=== PATIENT | male | born 1985 | race African-American/Black ===

== ENCOUNTER 2017-07-04 16:33 | Observation (INO) ==
[2017-07-04] MEDS ORDERED: GI Cocktail 40 ML EACH PO ONE (17:08)
[2017-07-04] MEDS ORDERED: Ondansetron 4 MG/2 ML VIAL IVP ONE (17:08)
[2017-07-04] MEDS ORDERED: 0.9 % Sodium Chloride 1,000 ML IVC ONE ×2 (17:08→19:08)
[2017-07-04 17:40] LABS: Basophils % 0.3 %; Eosinophils % 0.2 %; Hemoglobin 14.8 g/dL (12.9-16.9); Immature Granulocytes % 0.3 % (0-4); Lymphocytes # 1.9 K/mcL (0.6-4.6); Lymphocytes % 18.1 %; Mean Corpuscular HGB Conc 34.4 g/dL (31.6-35.5); Mean Corpuscular Hemoglobin 30.4 pg (28.0-33.3); Mean Corpuscular Volume 88.3 fL (83.0-100.0); Mean Platelet Volume 9.8 fL (9.4-12.4); Monocytes # 0.7 K/mcL (0.0-1.3); Monocytes % 6.6 %; Neutrophils # 7.7 K/mcL (1.6-8.9); Platelet Count 382 K/mcL (140-400); Red Blood Count 4.87 M/mcL (4.19-5.50); Red Cell Distribution Width 12.4 % (11.5-14.5); Segmented Neutrophils % 74.5 %
[2017-07-04 17:55] LABS: Alanine Aminotransferase 30 Units/L (7-52); Albumin 4.6 g/dL (3.5-5.7); Albumin/Globulin Ratio 1.4 (1.1-2.2); Alkaline Phosphatase 73 Units/L (34-104); Aspartate Amino Transferase 22 Units/L (13-39); BUN/Creatinine Ratio 7 (6-26); Bilirubin,Direct 0.1 mg/dL (0.0-0.2); Bilirubin,Indirect 0.3 mg/dL (0.0-1.2); Bilirubin,Total 0.4 mg/dL (0.3-1.0); Blood Urea Nitrogen 8 mg/dL (6-20); Calcium 10.1 mg/dL (8.6-10.3); Carbon Dioxide 26 mEq/L (23-29); Chloride 102 mEq/L (98-107); Globulin 3.3 g/dL (2.4-3.5); Glucose 101 mg/dL (70-105); Lipase 92 Units/L (11-82); Osmolality,Calculated 278 (280-300); Potassium 3.7 mEq/L (3.5-5.1); Sodium 135 mEq/L (136-145); Total Protein 7.9 g/dL (6.4-8.9); eGFR For Non-African Americans > 60 (> 60)
[2017-07-04] MEDS ORDERED: *HR* FentaNYL (PF) 100 MCG/2 ML VIAL IVP ONE ×2 (18:01→21:23)
[2017-07-04 18:15] LABS: Bilirubin,Urine Negative (Negative); Blood,Urine Negative (Negative); Clarity,Urine Clear (Clear); Color,Urine Yellow (Yellow); Glucose,Urine (UA) Normal (Normal); Ketones,Urine Negative (Negative); Leukocyte Esterase,Urine Negative (Negative); Nitrite,Urine Negative (Negative); Protein,Urine Trace mg/dL (Neg-Trace); Specific Gravity,Urine 1.016 (1.010-1.025); Urobilinogen,Urine Normal (Normal)
[2017-07-04 18:17] LABS: Bacteria,Urine None Seen per hpf (None-Few); Hyaline Casts,Urine None Seen per lpf (None-Few); RBC,Urine 0-3 per hpf (0-3); Squamous Epithelial Cell,Urine None Seen per lpf (None-Few); WBC,Urine 0-3 per hpf (0-3)
[2017-07-04] MEDS ORDERED: *HR* Promethazine 25 MG/ML VIAL IVP ONE (19:08)
--- NOTE | 2017-07-04 19:12 | Emergency Department Note ---
Disposition Clinical Impression: Pancreatitis Qualifiers: Chronicity: acute Pancreatitis type: unspecified pancreatitis type Acute pancreatitis complication: unspecified Qualified Code(s): K85.90 - Acute pancreatitis without necrosis or infection, unspecified Abdominal pain Qualifiers: Abdominal location: epigastric Qualified Code(s): R10.13 - Epigastric pain Intractable vomiting Qualifiers: Vomiting type: unspecified Nausea presence: with nausea Qualified Code(s): R11.2 - Nausea with vomiting, unspecified Disposition: Admitted As Inpatient Condition: Good Reasons to Return/Additional Instructions: Please follow-up with your primary care provider for continuation of your care. Return to the emergency department if you develop any worsening of your condition or if you develop new concerning symptoms. Prescriptions: OxyCODONE/APAP 5/325 [Percocet 5/325 MG] 1 each PO Q6HR PRN 4 Days #14 tablet PRN Reason: Pain Ondansetron ODT [Zofran ODT] 4 mg SL Q8HR #10 tab.rapdis Referrals: [facility] [Outside] [facility] [Outside] Forms: ED Satisfaction Letter Time of Disposition: 19:13 General Adult HPI - General Chief complaint: ED Nausea/Vomiting/Diarrhea Stated complaint: Vomiting / Flu Time Seen by Provider: 07/04/17 16:44 Source: patient, family Mode of arrival: ambulatory Limitations: no limitations Nursing Notes Reviewed: Yes Vital Signs Reviewed: Yes - History of Present Illness HPI Narrative: 32-year-old male presents emergency Department with concerns of epigastric abdominal pain. Patient states he has had this pain intermittently over the past 3 weeks. Patient states the pain is worse today and he presents for further evaluation. He has not been evaluated for this pain within the past few weeks. Patient denies a history of similar pain in the past. Patient states pain is worse with eating. He is unable to tolerate by mouth intake at home. Patient feels lightheaded however he has not syncopized. Patient denies fever, chest pain, shortness of breath, diarrhea, hematochezia, melena. Patient denies EtOH or IV drug use. Pain Scale: 8 - Related Data Previous Rx's Medication Instructions Recorded Famotidine [Pepcid] 20 mg PO DAILY #30 tablet 06/07/17 PredniSONE [Deltasone] 60 mg PO DAILY 4 Days #12 tablet 06/07/17 Ondansetron ODT [Zofran ODT] 4 mg SL Q8HR #10 tab.rapdis 07/04/17 OxyCODONE/APAP 5/325 [Percocet 1 each PO Q6HR PRN 4 Days #14 07/04/17 5/325 MG] tablet Allergies Allergy/AdvReac Type Severity Reaction Status Date / Time No Known Allergies Allergy Verified 07/04/17 16:36 All systems ED: reviewed and negative except as stated. Review of Systems: As Per HPI Past Medical History - Past Medical History Attestation: Yes The following information was validated with the patient. Source: patient Medical history: Reports: no medical history, other Surgical history: Reports: no surgical history, other Psychiatric history: Reports: no psych history - Social History Smoking Status: Former smoker Smokeless Tobacco Status: No Alcohol use: Reports: rarely Drug use: Reports: marijuana Physical Exam General: Alert and in no acute distress Skin: Warm, dry, intact Head: Normocephalic and atraumatic Neck: Supple, trachea midline and no tenderness Cardiovascular: Tachycardia, no murmur, normal perfusion Respiratory: CTAB, no wheezing, cough, or respiratory distress Musculoskeletal: Normal strength, no tenderness, swelling or deformity GI: Soft, mild tenderness to the right lower quadrant as well as the epigastrium without evidence of rigidity, guarding, rebound. nondistended. Bowel sounds present Neuro: A&O to person, place, time and situation. No focal deficits noted on exam Psychiatric: cooperative and appropriate mood and affect. - General Limitations: no limitations General appearance: alert, in no apparent distress Course Vital Signs Temperature 98.8 F 07/04/17 16:36 Pulse Rate 112 07/04/17 16:36 Respiratory Rate 20 07/04/17 16:36 Blood Pressure 159/102 07/04/17 16:36 O2 Sat by Pulse Oximetry 95 07/04/17 16:36 Temperature 98.8 F 07/04/17 16:36 Pulse Rate 112 07/04/17 16:36 Respiratory Rate 20 07/04/17 16:36 Blood Pressure 159/102 07/04/17 16:36 O2 Sat by Pulse Oximetry 95 07/04/17 16:36 Oxygen Delivery Oxygen Delivery Room Air Medical Decision Making - MDM Narrative Medical decision making narrative: Patient unable to tolerate by mouth intake in the emergency department. He received multiple doses of antiemetics as well as pain medication. Patient will be admitted to the hospital for abdominal pain with intractable nausea and vomiting for possible acute pancreatitis. - Medical Records Medical records reviewed: Yes I reviewed the patient's medical records. - Lab Data Lab results reviewed: Yes I reviewed the patient's lab results. Result diagrams: 07/04/17 17:29 07/04/17 17:29 Lab Results 07/04/17 07/04/17 07/04/17 Range/Units 17:29 17:29 17:29 WBC 10.3 (4.3-11.1) K/mcL RBC 4.87 (4.19-5.50) M/mcL Hgb 14.8 (12.9-16.9) g/dL Hct 43.0 (37.5-50.1) % MCV 88.3 (83.0-100.0) fL MCH 30.4 (28.0-33.3) pg MCHC 34.4 (31.6-35.5) g/dL RDW 12.4 (11.5-14.5) % Plt Count 382 (140-400) K/mcL MPV 9.8 (9.4-12.4) fL Immature Gran % 0.3 (0-4) % Seg Neutrophils % 74.5 % Lymphocytes % 18.1 % Monocytes % 6.6 % Eosinophils % 0.2 % Basophils % 0.3 % Neutrophils # 7.7 (1.6-8.9) K/mcL Lymphocytes # 1.9 (0.6-4.6) K/mcL Monocytes # 0.7 (0.0-1.3) K/mcL Eosinophils # 0.0 (0.0-0.6) K/mcL Basophils # 0.0 (0.0-0.2) K/mcL Sodium 135 L (136-145) mEq/L Potassium 3.7 (3.5-5.1) mEq/L Chloride 102 (98-107) mEq/L Carbon Dioxide 26 (23-29) mEq/L BUN 8 (6-20) mg/dL Creatinine 1.20 (0.70-1.30) mg/dL Est GFR ( Amer) > 60 (> 60) Est GFR (Non-Af Amer) > 60 (> 60) BUN/Creatinine Ratio 7 (6-26) Glucose 101 (70-105) mg/dL Calculated Osmolality 278 L (280-300) Lactic Acid 1.9 (0.5-2.2) mmol/L Calcium 10.1 (8.6-10.3) mg/dL Total Bilirubin 0.4 (0.3-1.0) mg/dL Direct Bilirubin 0.1 (0.0-0.2) mg/dL Indirect Bilirubin 0.3 (0.0-1.2) mg/dL AST 22 (13-39) Units/L ALT 30 (7-52) Units/L Alkaline Phosphatase 73 (34-104) Units/L Troponin I (< 0.04) ng/mL Serum Total Protein 7.9 (6.4-8.9) g/dL Albumin 4.6 (3.5-5.7) g/dL Globulin 3.3 (2.4-3.5) g/dL Albumin/Globulin Ratio 1.4 (1.1-2.2) Lipase 92 H (11-82) Units/L Urine Color (Yellow) Urine Clarity (Clear) Urine pH (5.0-8.0) pH Units Ur Specific [place] (1.010-1.025) Urine Protein (Neg-Trace) mg/dL Urine Glucose (UA) (Normal) mg/dL Urine Ketones (Negative) mg/dL Urine Blood (Negative) Urine Nitrite (Negative) Urine Bilirubin (Negative) Urine Urobilinogen (Normal) mg/dL Ur Leukocyte Esterase (Negative) Urine Microscopic RBC (0-3) per hpf Urine Microscopic WBC (0-3) per hpf Ur Squamous Epith Cells (None-Few) per lpf Urine Bacteria (None-Few) per hpf Hyaline Casts (None-Few) per lpf Ur Culture Indicated? (NO) 07/04/17 07/04/17 Range/Units 17:29 18:04 WBC (4.3-11.1) K/mcL RBC (4.19-5.50) M/mcL Hgb (12.9-16.9) g/dL Hct (37.5-50.1) % MCV (83.0-100.0) fL MCH (28.0-33.3) pg MCHC (31.6-35.5) g/dL RDW (11.5-14.5) % Plt Count (140-400) K/mcL MPV (9.4-12.4) fL Immature Gran % (0-4) % Seg Neutrophils % % Lymphocytes % % Monocytes % % Eosinophils % % Basophils % % Neutrophils # (1.6-8.9) K/mcL Lymphocytes # (0.6-4.6) K/mcL Monocytes # (0.0-1.3) K/mcL Eosinophils # (0.0-0.6) K/mcL Basophils # (0.0-0.2) K/mcL Sodium (136-145) mEq/L Potassium (3.5-5.1) mEq/L Chloride (98-107) mEq/L Carbon Dioxide (23-29) mEq/L BUN (6-20) mg/dL Creatinine (0.70-1.30) mg/dL Est GFR ( Amer) (> 60) Est GFR (Non-Af Amer) (> 60) BUN/Creatinine Ratio (6-26) Glucose (70-105) mg/dL Calculated Osmolality (280-300) Lactic Acid (0.5-2.2) mmol/L Calcium (8.6-10.3) mg/dL Total Bilirubin (0.3-1.0) mg/dL Direct Bilirubin (0.0-0.2) mg/dL Indirect Bilirubin (0.0-1.2) mg/dL AST (13-39) Units/L ALT (7-52) Units/L Alkaline Phosphatase (34-104) Units/L Troponin I < 0.03 (< 0.04) ng/mL Serum Total Protein (6.4-8.9) g/dL Albumin (3.5-5.7) g/dL Globulin (2.4-3.5) g/dL Albumin/Globulin Ratio (1.1-2.2) Lipase (11-82) Units/L Urine Color Yellow (Yellow) Urine Clarity Clear (Clear) Urine pH 8.0 (5.0-8.0) pH Units Ur Specific [place] 1.016 (1.010-1.025) Urine Protein Trace (Neg-Trace) mg/dL Urine Glucose (UA) Normal (Normal) mg/dL Urine Ketones Negative (Negative) mg/dL Urine Blood Negative (Negative) Urine Nitrite Negative (Negative) Urine Bilirubin Negative (Negative) Urine Urobilinogen Normal (Normal) mg/dL Ur Leukocyte Esterase Negative (Negative) Urine Microscopic RBC 0-3 (0-3) per hpf Urine Microscopic WBC 0-3 (0-3) per hpf Ur Squamous Epith Cells None Seen (None-Few) per lpf Urine Bacteria None Seen (None-Few) per hpf Hyaline Casts None Seen (None-Few) per lpf Ur Culture Indicated? NO (NO) - Radiology Data Radiology results reviewed: Yes I reviewed the patient's radiology results. - EKG Data EKG #1 EKG attestation: Yes I reviewed and interpreted this EKG. EKG results narrative: ECG - interpreted by ED physician. Rate 82, normal sinus rhythm, no STEMI, MT, QT intervals, and QRS within normal limits
[2017-07-04] MEDS ORDERED: 0.9 % Sodium Chloride 1,000 ML IVC SCH (21:30)
[2017-07-05] MEDS ORDERED: Acetaminophen 325 MG TABLET PO PRN (01:40)
[2017-07-05] MEDS ORDERED: Naloxone 0.4 MG/ML INJ IVP PRN (01:40)
[2017-07-05] MEDS: 0.9 % Sodium Chloride w KCl 20 MEQ/1,000 ML MLS IVC SCH (02:29)
[2017-07-05] MEDS: Pantoprazole 40 MG VIAL IVP SCH ×2 (02:29→18:25)
[2017-07-05] MEDS: *HR* FentaNYL (PF) 100 MCG/2 ML VIAL IVP PRN ×2 (02:32→08:39)
--- NOTE | 2017-07-05 03:35 | Internal Med History&Physical ---
Date of Encounter: 07/04/17 Time of Encounter: 20:50 Assessment and Plan (1) Abdominal pain Current visit: Yes Status: Acute 1. I suspect this is due to biliary colic. 2. Will keep npo, on IVF, pain control, and nausea control. 3. Will order GB ultrasound. 4. Patient may need HIDA scan and surgery consult if GB Ultrasound is negative. 5. Patient may also need EGD. 6. IV Protonix BID. Qualifiers: Abdominal location: right upper quadrant Qualified Code(s): R10.11 - Right upper quadrant pain (2) Pancreatitis Current visit: Yes Status: Acute 1. Etiology unclear but highly suspicious for gallstones despite negative CT. 2. RUQ U/S as above. 3. May need MRCP if above work-up negative. Qualifiers: Chronicity: acute Pancreatitis type: biliary Acute pancreatitis complication: no infection or necrosis Qualified Code(s): K85.10 - Biliary acute pancreatitis without necrosis or infection (3) Dehydration Current visit: Yes Status: Acute 1. IVF hydration. 2. Oral fluids when pancreatitis resolves and abdominal pain improves. (4) DVT prophylaxis Current visit: Yes Status: Acute 1. Heparin SQ. Internal Medicine - H&P: HPI Chief complaint: abdominal pain and protracted N/V Admitted From: Emergency Dept Plans for Post Hospital Care: Home History of present illness: Mr. Soriano is a 32 year old male who presents with a one-month history of abdominal pain, nausea, and vomiting. He thought he had "the flu" and so he did not seek treatment, thinking this would pass with time. However, he has been unable to eat much food or fluids over the last month. He has had protracted nausea and vomiting for the last month. He has had no fevers. He has had some diarrhea, however. He has had no cough, chills, or body aches. Over the last 24-48 hours, he developed severe epigastric and right upper quadrant abdominal pain with severe nausea and vomiting. Until the last 2 days , he has been able to sustain hydration and mild to moderate oral intake despite symptoms. However, over last 1-2 days, his been unable to keep any food or fluid down without protracted nausea and vomiting and intense abdominal pain. He therefore came to the ER for evaluation. Routine labs were unremarkable. Chest x-ray and CT scan of abdomen were also unremarkable as well. He failed an oral fluid challenge and continued to vomit and have nausea with intense pain. He was therefore admitted to the hospitalist service for further workup and care. Upon my assessment of the patient, he appears ill but nontoxic. He is complaining of intense epigastric and right upper quadrant abdominal pain. He denies any hematemesis, melena, or hematochezia. He takes no chronic medications and denies any NSAID use or abuse. He does not drink alcohol but roughly once a year on his birthday. He denies any specific food intolerance, but he states that any and all foods have bothered him over the last month. He develops intense abdominal pain, nausea and, oftentimes, vomiting with occasional diarrhea after any food ingestion. Family history reveals both parents and siblings with gallbladder problems. Past Med Surg Social Fam HX - Past Medical History Attestation: Yes The following information was validated with the patient. Source: patient, old records reviewed Medical history: no medical history Psychiatric history: no psych history - Past Surgical History Surgical History: no surgical history, other - Social History Smoking Status: Former smoker Smokeless Tobacco Status: No Alcohol use: rarely Drug use: none Occupational status: employed Current living situation: Home, With Family Activity Level: Independent ambulation Recent Out of Country Travel Within the Last 8 Weeks: No - Family History Mother Living Status: Still Living Hx Family GI Disorders: Yes (GB) Father Living Status: Still Living Hx Family GI Disorders: Yes (GB) Internal Medicine - H&P: Meds 3 Allergy/AdvReac Type Severity Reaction Status Date / Time No Known Allergies Allergy Verified 07/04/17 16:36 - Constitutional Constitutional: no chills, no fever(s), no night sweats - EENT Eyes: no blurry vision, no change in vision Ears: no ear pain, no tinnitus Nose, mouth and throat: no nasal congestion, no sinus pressure, no sore throat - Cardiovascular Cardiovascular ROS IM: no chest pain, no dyspnea, no dyspnea on exertion - Respiratory Respiratory: no cough, no hemoptysis, no chest congestion, no excessive phlegm production, no change in phlegm color - Gastrointestinal Gastrointestinal: abdominal pain, diarrhea, nausea, vomiting, no hematemesis, no hematochezia, no melena - Genitourinary Genitourinary ROS male: no dysuria, no flank pain, no hematuria - Musculoskeletal Musculoskeletal ROS IM: no arthralgias, no back pain, no muscle cramps, no myalgias - Integumentary Integumentary IM: no rash, no jaundice - Neurological Neurological ROS: no dizziness, no focal weakness, no frequent falls, no headache(s) - Psychiatric Psychiatric: no anxiety, no depression - Endocrine Endocrine IM: no polydipsia, no polyuria - Hematologic/Lymphatic Hematologic/Lymphatic: no easy bruising, no lymphadenopathy - Allergic/Immunologic Allergic/Immunologic: GI upset with certain foods (with all foods), no wheezing - Constitutional Vitals: Temp Pulse Resp BP Pulse Ox 98.9 F 82 15 162/98 98 07/04/17 23:07 07/04/17 23:07 07/04/17 23:07 07/04/17 23:07 07/04/17 23:07 General appearance: Present: cooperative, mild distress (due to epigastric pain) , A&O X 3, pleasant - Head Head exam: Present: atraumatic, normal inspection - Eye Eye exam: Present: EOMI, normal appearance, PERRL. Absent: scleral icterus Pupils: Present: normal accommodation - ENT ENT exam: Present: mucous membranes dry, normal exam, normal oropharynx - Neck Neck exam general surgery: Present: full ROM, supple. Absent: tenderness, nuchal rigidity - Respiratory Respiratory exam: Present: CTAB. Absent: rales, rhonchi, wheezes - Cardiovascular Cardiovascular exam: Present: RRR, +S1, +S2. Absent: diastolic murmur, systolic murmur - GI/Abdominal GI/Abdominal exam: Present: guarding, hypoactive bowel sounds, soft, tenderness (epigastrium), no peritoneal signs. Absent: hepatomegaly, rebound, splenomegaly - Extremities Exam Extremities exam: Present: full ROM, normal capillary refill, warm, radial pulses palpable and symmetrical. Absent: calf tenderness, joint swelling, pedal edema - Back Exam Back exam: Present: normal inspection. Absent: CVA tenderness (L), CVA tenderness (R) - Neurological Exam Neurological exam: Present: alert, CN II-XII intact, oriented X3, no focal deficits, strengths equal and symetr throughout - Psychiatric Psychiatric exam: Present: normal affect, normal mood - Skin Skin exam: Present: dry, warm. Absent: rash Internal Med - H&P Results - Labs CBC & Chem 7: 07/04/17 17:29 07/04/17 17:29 - Diagnostic Studies Chest x-ray Status: image reviewed by me (negative) CT scan - abdomen Status: image reviewed by me (negative)
[2017-07-05] MEDS: *HR* Heparin 5,000 UNIT/ML VIAL SQ SCH ×2 (05:27→18:25)
[2017-07-05 05:31] LABS: Activated Partial Thrombo Time 30.6 Seconds (26.0-36.0); INR 1.1; Prothrombin Time 12.4 Seconds (9.4-12.1)
[2017-07-05 05:39] LABS: Basophils % 0.5 %; Eosinophils % 0.5 %; Hemoglobin 13.7 g/dL (12.9-16.9); Immature Granulocytes % 0.3 % (0-4); Lymphocytes # 2.3 K/mcL (0.6-4.6); Lymphocytes % 29.4 %; Mean Corpuscular HGB Conc 33.4 g/dL (31.6-35.5); Mean Corpuscular Volume 89.7 fL (83.0-100.0); Monocytes # 0.7 K/mcL (0.0-1.3); Monocytes % 8.7 %; Neutrophils # 4.7 K/mcL (1.6-8.9); Platelet Count 352 K/mcL (140-400); Red Blood Count 4.57 M/mcL (4.19-5.50); Red Cell Distribution Width 12.6 % (11.5-14.5); Segmented Neutrophils % 60.6 %
[2017-07-05 05:45] LABS: Alanine Aminotransferase 31 Units/L (7-52); Albumin 4.1 g/dL (3.5-5.7); Albumin/Globulin Ratio 1.5 (1.1-2.2); Alkaline Phosphatase 64 Units/L (34-104); Amylase 130 Units/L (29-103); Aspartate Amino Transferase 23 Units/L (13-39); BUN/Creatinine Ratio 5 (6-26); Bilirubin,Total 0.5 mg/dL (0.3-1.0); Blood Urea Nitrogen 6 mg/dL (6-20); Calcium 9.3 mg/dL (8.6-10.3); Carbon Dioxide 27 mEq/L (23-29); Chloride 105 mEq/L (98-107); Chol/HDL Ratio 3.5 (0-4.9); Cholesterol 159 mg/dL (< 200); Globulin 2.8 g/dL (2.4-3.5); Glucose 91 mg/dL (70-105); HDL Cholesterol 45 mg/dL (40-59); LDL Cholesterol,Calculated 99 mg/dL (0-99); Lipase 93 Units/L (11-82); Osmolality,Calculated 287 (280-300); Potassium 3.6 mEq/L (3.5-5.1); Sodium 140 mEq/L (136-145); Total Protein 6.9 g/dL (6.4-8.9); Triglycerides 73 mg/dL (< 150); eGFR For Non-African Americans > 60 (> 60)
[2017-07-05] MEDS: Ondansetron 4 MG/2 ML VIAL IVP PRN ×2 (08:39→15:19)
--- NOTE | 2017-07-05 10:49 | General Surgery Consult Note ---
<Ruby Velazco - Last Filed: 07/05/17 15:04> Date of Encounter: 07/05/17 Time of Encounter: 10:47 Assessment and Plan (1) Abdominal pain Current Visit: Yes Status: Acute CT abdomen and pelvis on 07/04/2017 demonstrates no evidence of acute intra- abdominal inflammatory process or fluid collection. Right upper quadrant ultrasound on 07/05/2017 was negative. Patient with symptoms consistent with biliary colic versus biliary dyskinesia. -Patient to undergo HIDA nuclear medicine scan tomorrow, likely operating room tomorrow evening. -NPO, can take PO medications including carafate. -Continue IV fluids, pain control, and anti-emetics. Qualifiers: Abdominal location: right upper quadrant Qualified Code(s): R10.11 - Right upper quadrant pain (2) Pancreatitis Current Visit: Yes Status: Acute Unclear etiology as negative CT and right upper quadrant ultrasound. -May need MRCP. -HIDA scan tomorrow. -Management as per above. Qualifiers: Chronicity: acute Pancreatitis type: biliary Acute pancreatitis complication: no infection or necrosis Qualified Code(s): K85.10 - Biliary acute pancreatitis without necrosis or infection (3) DVT prophylaxis Current Visit: Yes Status: Acute Heparin subcutaneous. History of Present Illness Consult date: 07/05/17 Reason for consult: abdominal pain (RUQ pain) Requesting physician: Alie Ignacio History of present illness: Mr. Soriano is a 32-year-old male who presents to [facility] on 07/04/2017 with a 6 week history of intermittently worsening right upper quadrant abdominal pain, nausea, and vomiting. Patient reports sporadic fevers. He also reports mild diarrhea. He denies constipation, dysuria, or hematuria. He denies cough, chills, or night sweats. He does report a 33 pound weight loss over the past 6 weeks. Patient states he did not present to the hospital sooner as he thought he had the flu and was waiting to feel better on his own. He describes his abdominal pain as achy and sharp. He states his symptoms are exacerbated by high fat meals. He does report several episodes of emesis which he reports as being green in color. Patient states he has had minimal oral intake of fluids. Upon arrival to [facility], he described increased right upper quadrant pain which he described as severe. He also described intractable nausea and vomiting. CT of the abdomen and pelvis obtained demonstrated no acute process. Patient was admitted to the hospitalist for further workup after failing an oral fluid challenge. Since admission, patient has had a right upper quadrant abdominal ultrasound which was negative. This morning, patient is resting comfortably. He states his pain is well controlled. He denies nausea or vomiting. His family is at bedside and report and positive family history in multiple members of the family for gallbladder disease. Past Med Surg Social Fam HX - Past Medical History Attestation: Yes The following information was validated with the patient. Source: patient Medical history: no medical history Psychiatric history: no psych history - Past Surgical History Surgical History: no surgical history, other - Social History Smoking Status: Former smoker Smokeless Tobacco Status: No Alcohol use: rarely Drug use: none - Family History Mother Living Status: Still Living Hx Family GI Disorders: Yes (GB) Father Living Status: Still Living Hx Family GI Disorders: Yes (GB) Medications and Allergies Ranitidine HCl [Acid Restaurant Line Server] 150 mg PO BID 07/05/17 [History] 3 Allergy/AdvReac Type Severity Reaction Status Date / Time No Known Allergies Allergy Verified 07/05/17 08:04 Review of Systems All systems PM: The remainder of the systems were reviewed and are negative - Constitutional as per HPI, fever(s), weight loss - Cardiovascular no chest pain, no chest pain at rest, no chest pain with activity, no dyspnea, no lightheadedness, no orthopnea, no pedal edema, no rapid heart rate - Respiratory no cough, no dyspnea - Gastrointestinal as per HPI, abdominal pain, diarrhea, nausea, no coffee ground emesis, no constipation, no melena - Genitourinary no flank pain, no urinary frequency, no urinary hesitancy - Endocrine no cold intolerance, no excessive sweating, no polyphagia General Surgery Exam Initial Vital Signs Temp Pulse Resp BP Pulse Ox 98.8 F 112 20 159/102 95 07/04/17 16:36 07/04/17 16:36 07/04/17 16:36 07/04/17 16:36 07/04/17 16:36 - General physical appearance well developed, well nourished - Cardiovascular Cardiovascular exam: Present: NR, tachycardia, no murmurs/rubs/gallops - Abdomen Abdomen general surgery: Present: bowel sounds present, soft, tender. Absent: guarding, rebound, rigid Abdominal Tenderness: Present: RUQ Hernia: Present: none - Neurologic Present: normal coordination - Psychiatric Psychiatric general surgery: Present: A&Ox3, speech is normal, memory intact Exam Initial Vital Signs Temp Pulse Resp BP Pulse Ox 98.8 F 112 20 159/102 95 07/04/17 16:36 07/04/17 16:36 07/04/17 16:36 07/04/17 16:36 07/04/17 16:36 Results - Labs 07/05/17 04:02 07/05/17 04:02 Abnormal lab results PT 12.4 Seconds (9.4-12.1) H 07/05/17 04:02 BUN/Creatinine Ratio 5 (6-26) L 07/05/17 04:02 Amylase 130 Units/L (29-103) H 07/05/17 04:02 Lipase 93 Units/L (11-82) H 07/05/17 04:02 Diabetes panel 07/05/17 Range/Units 04:02 Sodium 140 (136-145) mEq/L Potassium 3.6 (3.5-5.1) mEq/L Chloride 105 (98-107) mEq/L Carbon Dioxide 27 (23-29) mEq/L BUN 6 (6-20) mg/dL Creatinine 1.11 (0.70-1.30) mg/dL Glucose 91 (70-105) mg/dL Calcium 9.3 (8.6-10.3) mg/dL AST 23 (13-39) Units/L ALT 31 (7-52) Units/L Alkaline Phosphatase 64 (34-104) Units/L Albumin 4.1 (3.5-5.7) g/dL Triglycerides 73 (< 150) mg/dL HDL Cholesterol 45 (40-59) mg/dL Calcium panel 07/05/17 Range/Units 04:02 Calcium 9.3 (8.6-10.3) mg/dL Albumin 4.1 (3.5-5.7) g/dL Pituitary panel 07/05/17 Range/Units 04:02 Sodium 140 (136-145) mEq/L Potassium 3.6 (3.5-5.1) mEq/L Chloride 105 (98-107) mEq/L Carbon Dioxide 27 (23-29) mEq/L BUN 6 (6-20) mg/dL Creatinine 1.11 (0.70-1.30) mg/dL Glucose 91 (70-105) mg/dL Calcium 9.3 (8.6-10.3) mg/dL Adrenal panel 07/05/17 Range/Units 04:02 Sodium 140 (136-145) mEq/L Potassium 3.6 (3.5-5.1) mEq/L Chloride 105 (98-107) mEq/L Carbon Dioxide 27 (23-29) mEq/L BUN 6 (6-20) mg/dL Creatinine 1.11 (0.70-1.30) mg/dL Glucose 91 (70-105) mg/dL Calcium 9.3 (8.6-10.3) mg/dL Total Bilirubin 0.5 (0.3-1.0) mg/dL AST 23 (13-39) Units/L ALT 31 (7-52) Units/L Alkaline Phosphatase 64 (34-104) Units/L Albumin 4.1 (3.5-5.7) g/dL All other labs normal. Consult Discharge Plan - Plan Referrals: NONE,PCP [Primary Care Provider] - <Estrellita Santiago - Last Filed: 07/05/17 15:14> Date of Encounter: 07/05/17 Assessment and Plan (1) Nausea & vomiting Current Visit: Yes Status: Chronic continue prn antiemetics Qualifiers: Vomiting type: unspecified (2) Abdominal pain Current Visit: Yes Status: Acute awaiting hida tomorrow discussed with patient his symptoms sound gallbladder related npo prn antiemetics prn pain control gi/dvt prophylaxis Qualifiers: Abdominal location: right upper quadrant Qualified Code(s): R10.11 - Right upper quadrant pain (3) GERD (gastroesophageal reflux disease) Current Visit: Yes Status: Chronic PPI and carafate Qualifiers: Esophagitis presence: esophagitis presence not specified Qualified Code(s) : K21.9 - Gastro-esophageal reflux disease without esophagitis History of Present Illness History of present illness: patient reports feelings of RUQ pain, sharp and crampy pain after meals. This has been occurring for the last ~ 6 weeks. He has nausea and emesis after eating meals as well. He has had looser stools but denies diarrhea. No particular types of foods cause symptoms but all types of food, even liquid. He states he has lost about 30 lbs over the last 6 weeks. No fevers, chills or night sweats. Denies radiation of pain into right shoulder or back. CT showed normal gallbladder as did US of gallbladder. Ordered hida but patient ate peppermints Past Med Surg Social Fam HX - Past Medical History Medical history: GERD, other (obesity, hx drug use) - Social History Drug use: cocaine, opiates, marijuana Review of Systems All systems PM: reviewed and no additional remarkable complaints except as stated All systems PM: The remainder of the systems were reviewed and are negative General Surgery Exam Initial Vital Signs Temp Pulse Resp BP Pulse Ox 98.8 F 112 20 159/102 95 07/04/17 16:36 07/04/17 16:36 07/04/17 16:36 07/04/17 16:36 07/04/17 16:36 - General physical appearance well developed, well nourished, moderate pain, obese - Eyes PERRL, normal ocular movement - ENT normal mucosa, normocephalic - Neck trachea midline - Respiratory normal expansion, normal respiratory effort - Cardiovascular Cardiovascular exam: Present: RRR - Abdomen Abdomen general surgery: Present: bowel sounds present, soft, tender. Absent: guarding, rebound Abdominal Tenderness: Present: RUQ - Integumentary Integumentary general surgery: Present: warm and dry, no abnormal pigmentation - Neurologic Present: CN 2-12 grossly intact - Musculoskeletal Present: normal gait, normal posture - Psychiatric Psychiatric general surgery: Present: A&Ox3, speech is normal, memory intact Exam Initial Vital Signs Temp Pulse Resp BP Pulse Ox 98.8 F 112 20 159/102 95 07/04/17 16:36 07/04/17 16:36 07/04/17 16:36 07/04/17 16:36 07/04/17 16:36 Results - Labs 07/05/17 04:02 07/05/17 04:02 Abnormal lab results PT 12.4 Seconds (9.4-12.1) H 07/05/17 04:02 BUN/Creatinine Ratio 5 (6-26) L 07/05/17 04:02 Amylase 130 Units/L (29-103) H 07/05/17 04:02 Lipase 93 Units/L (11-82) H 07/05/17 04:02 Diabetes panel 07/05/17 Range/Units 04:02 Sodium 140 (136-145) mEq/L Potassium 3.6 (3.5-5.1) mEq/L Chloride 105 (98-107) mEq/L Carbon Dioxide 27 (23-29) mEq/L BUN 6 (6-20) mg/dL Creatinine 1.11 (0.70-1.30) mg/dL Glucose 91 (70-105) mg/dL Calcium 9.3 (8.6-10.3) mg/dL AST 23 (13-39) Units/L ALT 31 (7-52) Units/L Alkaline Phosphatase 64 (34-104) Units/L Albumin 4.1 (3.5-5.7) g/dL Triglycerides 73 (< 150) mg/dL HDL Cholesterol 45 (40-59) mg/dL Calcium panel 07/05/17 Range/Units 04:02 Calcium 9.3 (8.6-10.3) mg/dL Albumin 4.1 (3.5-5.7) g/dL Pituitary panel 07/05/17 Range/Units 04:02 Sodium 140 (136-145) mEq/L Potassium 3.6 (3.5-5.1) mEq/L Chloride 105 (98-107) mEq/L Carbon Dioxide 27 (23-29) mEq/L BUN 6 (6-20) mg/dL Creatinine 1.11 (0.70-1.30) mg/dL Glucose 91 (70-105) mg/dL Calcium 9.3 (8.6-10.3) mg/dL Adrenal panel 07/05/17 Range/Units 04:02 Sodium 140 (136-145) mEq/L Potassium 3.6 (3.5-5.1) mEq/L Chloride 105 (98-107) mEq/L Carbon Dioxide 27 (23-29) mEq/L BUN 6 (6-20) mg/dL Creatinine 1.11 (0.70-1.30) mg/dL Glucose 91 (70-105) mg/dL Calcium 9.3 (8.6-10.3) mg/dL Total Bilirubin 0.5 (0.3-1.0) mg/dL AST 23 (13-39) Units/L ALT 31 (7-52) Units/L Alkaline Phosphatase 64 (34-104) Units/L Albumin 4.1 (3.5-5.7) g/dL All other labs normal. - Imaging CT scan - abdomen: report reviewed CT scan - pelvis: report reviewed US - abdomen: report reviewed - Attending Attestation I examined this patient and my medical decision-making was reviewed with the Resident Physician. I agree with the documented findings, disposition and treatment plan as described except to the extent set forth below.
[2017-07-05] MEDS ORDERED: *HR* OxyCODONE Immed Rel 5 MG TABLET PO PRN (13:05)
[2017-07-05] MEDS ORDERED: *HR* Promethazine 25 MG/ML VIAL IVP PRN (15:15)
--- NOTE | 2017-07-05 15:34 | Internal Med Progress Note ---
Date of Encounter: 07/05/17 Time of Encounter: 09:25 - Assessment and plan (1) Abdominal pain Current Visit: Yes Status: Acute Assessment and plan: Likely biliary colic. CT abdomen showed no evidence of acute intra-abdominal inflammatory process. Right upper quadrant ultrasound showed no evidence of gallstones or thickened gallbladder wall. Liver enzymes and bilirubin noted to be normal. Serum lipase is minimally elevated at 93. Patient's history is consistent with biliary disease. Surgery consulted, recommended HIDA scan, which is pending. Continue bowel rest, IV hydration, supportive care with when necessary antiemetics and pain control with when necessary IV fentanyl and oral Percocet. PPI. Qualifiers: Abdominal location: right upper quadrant Qualified Code(s): R10.11 - Right upper quadrant pain (2) Pancreatitis Current Visit: Yes Status: Acute Assessment and plan: Very mild. Likely due to biliary etiology. Plan as above. May consider MRCP if HIDA scan is negative. Qualifiers: Chronicity: acute Pancreatitis type: biliary Acute pancreatitis complication: no infection or necrosis Qualified Code(s): K85.10 - Biliary acute pancreatitis without necrosis or infection - Subjective Interval history: Feels better today, with improved abdominal pain. Had some nausea and vomiting earlier. No diarrhea, fever, chills. - Constitutional Vitals: Temp Pulse Resp BP Pulse Ox 98.4 F 91 15 153/94 97 07/05/17 15:12 07/05/17 15:12 07/05/17 15:12 07/05/17 15:12 07/05/17 15:12 General appearance: Present: cooperative, A&O X 3, morbidly obese, answers questions appropriately - Respiratory Respiratory exam: Present: CTAB. Absent: accessory muscle use, rales, rhonchi, wheezes - Cardiovascular Cardiovascular exam: Present: RRR, +S1, +S2, tachycardia. Absent: diastolic murmur, gallop, rubs, systolic murmur - GI/Abdominal GI/Abdominal exam: Present: normal bowel sounds, soft (Tenderness to deep palpation in epigastrium and right upper quadrant. No guarding or rigidity.), no peritoneal signs. Absent: distended, tenderness - Extremities Exam Extremities exam: Present: full ROM, warm, radial pulses palpable and symmetrical. Absent: calf tenderness, cyanotic, pedal edema - Neurological Exam Neurological exam: Present: CN II-XII intact, oriented X3, no focal deficits. Absent: pronater drift, facial droop, speech deficit - Skin Skin exam: Present: dry, intact Internal Medicine: Result - Labs CBC & Chem 7: 07/05/17 04:02 07/05/17 04:02 Labs: Short CBC 07/05/17 Range/Units 04:02 WBC 7.8 (4.3-11.1) K/mcL Hgb 13.7 (12.9-16.9) g/dL Hct 41.0 (37.5-50.1) % Plt Count 352 (140-400) K/mcL Neutrophils # 4.7 (1.6-8.9) K/mcL BMP 07/05/17 04:02 Sodium 140 Potassium 3.6 Chloride 105 Carbon Dioxide 27 BUN 6 Creatinine 1.11 Glucose 91 Calcium 9.3 Liver Function 07/05/17 Range/Units 04:02 Total Bilirubin 0.5 (0.3-1.0) mg/dL AST 23 (13-39) Units/L ALT 31 (7-52) Units/L Alkaline Phosphatase 64 (34-104) Units/L Albumin 4.1 (3.5-5.7) g/dL - ABG Interpretation ABG results: PT/INR, D-dimer PT 12.4 Seconds (9.4-12.1) H 07/05/17 04:02 - Impressions Impressions Gallbladder Ultrasound 07/05/17 11:00 IMPRESSION: Negative right upper quadrant ultrasound. D/ / Ramon Paulino MD / Ramon Paulino MD Interpreting Provider: Ramon Paulino MD Consult Discharge Plan - Plan Referrals: NONE,PCP [Primary Care Provider] -
[2017-07-05] MEDS ORDERED: Sucralfate 1 GM TABLET PO SCH ×2 (16:30)
[2017-07-05] MEDS: Sucralfate 1 GM TABLET PO SCH ×2 (16:36→21:15)
[2017-07-05] MEDS: D5% in 0.9% NACL 1,000 ML IVC SCH (16:46)
[2017-07-05] MEDS ORDERED: *HR* OxyCODONE/APAP 5/325 TABLET PO ONE (17:12)
--- NOTE | 2017-07-05 19:46 | Anesthesia Evaluation PreOp ---
Date of Encounter: 07/05/17 Time of Encounter: 22:21 - Past History Planned Operation: Laparoscopic Cholecystectomy Cardiac History: Denies any Significant Hx Pulmonary History: Denies Any Significant HX, Snore MANAGER HRIS History: Denies Any Significant HX Other Medical History: GERD, Other (obesity BMI=41.2) Anesthesia History: Past Anesthesia (no prior surgery) Alcohol Use: rarely Drug use: marijuana Medications and Allergies Ranitidine HCl [Acid Manager Commercial Sales] 150 mg PO BID 07/05/17 [History] 3 Allergy/AdvReac Type Severity Reaction Status Date / Time No Known Allergies Allergy Verified 07/05/17 08:04 - Meds/Allergy Pre-op Review Medications Reviewed: Yes Allergies Reviewed: Yes Beta Blockers on Current Med List: No Anesthesia Results - Labs 07/05/17 04:02 07/05/17 04:02 - Imaging EKG: report reviewed (03/07/2015 SINUS RHYTHM) Anesthesia Exam Vital Signs/O2 Sat/Glucose, Most Recent Temp Pulse Resp BP Pulse Ox 97.3 F L 117 15 103/63 95 07/05/17 19:08 07/05/17 19:08 07/05/17 19:08 07/05/17 19:08 07/05/17 19:08 Blood Glucose* 93 Height: 5'10"/1.78 m Weight: 287 lbs/130.2 kg NPO (# of Hours): 8 Pain Scale: 5 Pain Scale Used: Numeric (1 - 10) - HEENT Pupil (Motor): EOMI Mallampati: III Teeth: Normal Oral Opening: Greater than 3 - MANAGER HRIS LOC: Oriented MANAGER HRIS Motor: Normal RUE, Normal LUE, Normal RLE, Normal LLE, Normal Face MANAGER HRIS Sensory: Normal: RUE, LUE, RLE, LLE, Face - Cardiac Rhythm: Regular Murmur: None - Pulmonary Breath Sounds: bilateral Clear Respiratory Effort: Symmetrical Anesthesia Assess/Plan ASA Score: 3 Modified Upperco Scale for Level of Consciousness: Cooperative, oriented, and tranquil Anesthetic Plan: General Monitoring Plan: Standard Monitors Recovery Plan: PACU
[2017-07-05] MEDS: *HR* OxyCODONE Immed Rel 5 MG TABLET PO PRN (21:15)
[2017-07-06] MEDS: *HR* OxyCODONE Immed Rel 5 MG TABLET PO PRN ×3 (01:22→21:13)
[2017-07-06 02:14] LABS: Amphetamine Screen,Urine Negative ng/mL (Cutoff=1000); Barbiturate Screen,Urine Negative ng/mL (Cutoff=200); Benzodiazepines Screen,Urine Positive ng/mL (Cutoff=200); Cannabinoid Screen,Urine Positive ng/mL (Cutoff = 50); Cocaine Screen,Urine Negative ng/mL (Cutoff= 300); Opiate Screen,Urine Positive ng/mL (Cutoff=300); Phencyclidine Screen,Urine Negative ng/mL (Cutoff=25)
[2017-07-06] MEDS: *HR* Heparin 5,000 UNIT/ML VIAL SQ SCH ×2 (05:12→22:33)
[2017-07-06] MEDS: D5% in 0.9% NACL 1,000 ML IVC SCH ×2 (05:12→22:33)
[2017-07-06] MEDS: Pantoprazole 40 MG VIAL IVP SCH ×2 (05:12→22:33)
--- NOTE | 2017-07-06 08:30 | General Surgery Progress Note ---
<Shaawnda Abrams - Last Filed: 07/06/17 08:51> Date of Encounter: 07/06/17 Time of Encounter: 08:30 - Assessment and Plan (1) RUQ abdominal pain Current Visit: Yes Status: Acute Symptoms and assessment are consistent with biliary colic given unremarkable ultrasound, CT, and HIDA. Notably patient completed a HIDA scan this am (final report pending) and upon review with Dr. Steele (interpreting radiologist) the scan was unremarkable; however, patient states immediately following the completion of the exam he began developing right upper quadrant pain radiated to the back, felt sharp and throbbing, associated with nausea, and felt very similar to his presenting symptoms. We will plan for surgical intervention in the next 24 to 48 hours. The recommendations, benefits, and risks associated laparoscopic cholecystectomy have been reviewed with Mr. Butt he is agreeable to proceed. A signed copy of his consent is in his hard chart. (2) Abnormal drug screen Current Visit: Yes Status: Acute Per record review, patient denied drug use but notably his UDS is positive for THC and benzodiazepines. It is also positive for opiates and opiates could be explained by his pain medication use during the submission. Upon further exploration with the patient, he does admit to smoking marijuana daily. He denies benzodiazepine use with the exception of he was given something for anxiety at his outlying hospital admission recently. Plan: IS 10x Qhour while awake Duoneb Q4H scheduled postoperatively At this time patient refuses, but states he may consider. Will place orders as this is my recommendation. (3) Nausea & vomiting Current Visit: Yes Status: Chronic See A/P above Qualifiers: Vomiting type: unspecified Vomiting Intractability: non-intractable Qualified Code(s): R11.2 - Nausea with vomiting, unspecified (4) GERD (gastroesophageal reflux disease) Current Visit: Yes Status: Chronic Continue PPI See a/p above Qualifiers: Esophagitis presence: esophagitis presence not specified Qualified Code(s) : K21.9 - Gastro-esophageal reflux disease without esophagitis Subjective Patient reports: still having pain, voiding w/o difficulty, no flatus, no bowel movement, nausea, afebrile Narrative: Scooter states that immediately following the completion of his HIDA scan this morning, he began experiencing the same symptoms of right upper quadrant pain, radiating to the back, nausea, and no vomiting. He states the symptoms felt similar to his presenting symptoms. Objective Vital Signs - Last 8 Hours Temp Pulse Resp BP Pulse Ox 07/06/17 04:00 98.0 F 102 16 111/68 95 Intake and Output 07/05/17 07/06/17 07/06/17 23:59 07:59 15:59 Intake Total 0 / 0 1000 / 1000 Output Total 0 / 0 0 / 0 Balance 0 / 0 1000 / 1000 Intake: IV Fluids 1000 / 1000 D5% And 0.9% Nacl 1000 Ml 1,000 1000 / 1000 ML @ 75 mls/hr IVC .[id number] DRAKE Rx#:[id number] Oral 0 / 0 0 / 0 Output: Urine 0 / 0 0 / 0 Other: Meal NPO Percent of Meal Consumed 0% Blood Glucose* 93 80 - General physical appearance no distress, moderate pain - ENT atraumatic, normocephalic - Neck Neck exam: trachea midline, no venous distension - Respiratory normal expansion, normal respiratory effort, clear to auscultation - Cardiovascular Cardiovascular exam: Present: distant heart sounds - Abdomen Abdomen: Present: bowel sounds present, soft, tender Abdominal Tenderness: RUQ Hernia: none - Integumentary no growths, no abnormal pigmentation - Neurologic CN 2-12 grossly intact, normal coordination, normal sensation - Musculoskeletal normal posture - Psychiatric oriented to time, oriented to person, oriented to place, speech is normal, memory intact - Labs 07/05/17 04:02 07/05/17 04:02 Consult Discharge Plan - Plan Referrals: Ira Carlos [employer]ICE OFFICER [Advanced Practice Nurse] - 07/22/17 9:00 am <Estrellita Santiago - Last Filed: 07/06/17 15:43> Date of Encounter: 07/06/17 - Assessment and Plan (1) Nausea & vomiting Current Visit: Yes Status: Chronic Qualifiers: Vomiting type: unspecified Vomiting Intractability: non-intractable Qualified Code(s): R11.2 - Nausea with vomiting, unspecified (2) Abdominal pain Current Visit: Yes Status: Acute Qualifiers: Abdominal location: right upper quadrant Qualified Code(s): R10.11 - Right upper quadrant pain (3) GERD (gastroesophageal reflux disease) Current Visit: Yes Status: Chronic Qualifiers: Esophagitis presence: esophagitis presence not specified Qualified Code(s) : K21.9 - Gastro-esophageal reflux disease without esophagitis (4) Biliary dyskinesia Current Visit: Yes Status: Acute Discussed with the patient that his symptoms do sound like biliary dyskinesia and that it is due to his gallbladder. He is not having persistent right upper quadrant pain particularly after meals, nausea vomiting. He does have heartburn and and reflux but he feels this is a separate issue and is on medication for this. We will plan a laparoscopic cholecystectomy, possible clinching grams possible open. Risks and benefits were discussed with the patient he wishes to proceed. He will remain nothing by mouth, hydrate with IV fluids. When necessary pain medication and when necessary antibiotics. Ultrasound of the gallbladder shows no obvious stone CT scan shows no obvious pathology i.e. pericholecystic fluid. Or gallbladder wall thickening, no gallbladder stones. Patient became symptomatic after HIDA scan with nausea and right upper quadrant pain. Ejection fraction from HIDA was 83%. Objective Vital Signs - Last 8 Hours Temp Pulse Resp BP Pulse Ox 07/06/17 12:06 97.8 F 84 16 114/77 95 Intake and Output 07/05/17 07/06/17 07/06/17 23:59 07:59 15:59 Intake Total 0 / 0 1000 / 1000 50 / 50 Output Total 0 / 0 0 / 0 Balance 0 / 0 1000 / 1000 50 / 50 Intake: IV Fluids 1000 / 1000 50 / 50 D5% And 0.9% Nacl 1000 Ml 1,000 1000 / 1000 ML @ 75 mls/hr IVC .[id number] DRAKE Rx#:[id number] Ofirmev 1,000 mg/100 ml 500 mg 50 / 50 In 50 ml @ 200 mls/hr IVPB Q4H DRAKE Rx#:[id number] Oral 0 / 0 0 / 0 0 / 0 Output: Urine 0 / 0 0 / 0 Other: Meal NPO NPO Percent of Meal Consumed 0% # Voids 2 Blood Glucose* 93 80 - Labs 07/06/17 09:08 07/06/17 09:08 Diabetes panel 07/06/17 Range/Units 09:08 Sodium 138 (136-145) mEq/L Potassium 3.6 (3.5-5.1) mEq/L Chloride 105 (98-107) mEq/L Carbon Dioxide 29 (23-29) mEq/L BUN 5 L (6-20) mg/dL Creatinine 1.29 (0.70-1.30) mg/dL Glucose 98 (70-105) mg/dL Calcium 9.2 (8.6-10.3) mg/dL AST 19 (13-39) Units/L ALT 32 (7-52) Units/L Alkaline Phosphatase 59 (34-104) Units/L Albumin 3.9 (3.5-5.7) g/dL Calcium panel 07/06/17 Range/Units 09:08 Calcium 9.2 (8.6-10.3) mg/dL Albumin 3.9 (3.5-5.7) g/dL Pituitary panel 07/06/17 Range/Units 09:08 Sodium 138 (136-145) mEq/L Potassium 3.6 (3.5-5.1) mEq/L Chloride 105 (98-107) mEq/L Carbon Dioxide 29 (23-29) mEq/L BUN 5 L (6-20) mg/dL Creatinine 1.29 (0.70-1.30) mg/dL Glucose 98 (70-105) mg/dL Calcium 9.2 (8.6-10.3) mg/dL Adrenal panel 07/06/17 Range/Units 09:08 Sodium 138 (136-145) mEq/L Potassium 3.6 (3.5-5.1) mEq/L Chloride 105 (98-107) mEq/L Carbon Dioxide 29 (23-29) mEq/L BUN 5 L (6-20) mg/dL Creatinine 1.29 (0.70-1.30) mg/dL Glucose 98 (70-105) mg/dL Calcium 9.2 (8.6-10.3) mg/dL Total Bilirubin 0.3 (0.3-1.0) mg/dL AST 19 (13-39) Units/L ALT 32 (7-52) Units/L Alkaline Phosphatase 59 (34-104) Units/L Albumin 3.9 (3.5-5.7) g/dL - Attending Attestation I have personally performed a face to face evaluation on this patient. I have reviewed and agree with the care plan. History and Exam by me shows:
[2017-07-06] MEDS: Ondansetron 4 MG/2 ML VIAL IVP PRN (08:52)
[2017-07-06] MEDS: Sucralfate 1 GM TABLET PO SCH (08:52)
[2017-07-06 09:30] LABS: Basophils % 0.6 %; Eosinophils # 0.2 K/mcL (0.0-0.6); Eosinophils % 2.3 %; Hematocrit 41.3 % (37.5-50.1); Hemoglobin 13.6 g/dL (12.9-16.9); Immature Granulocytes % 0.4 % (0-4); Lymphocytes # 2.8 K/mcL (0.6-4.6); Mean Corpuscular HGB Conc 32.9 g/dL (31.6-35.5); Mean Corpuscular Hemoglobin 30.4 pg (28.0-33.3); Mean Corpuscular Volume 92.4 fL (83.0-100.0); Mean Platelet Volume 9.5 fL (9.4-12.4); Monocytes # 0.6 K/mcL (0.0-1.3); Monocytes % 8.3 %; Neutrophils # 3.4 K/mcL (1.6-8.9); Platelet Count 332 K/mcL (140-400); Red Blood Count 4.47 M/mcL (4.19-5.50); Red Cell Distribution Width 12.7 % (11.5-14.5); Segmented Neutrophils % 48.4 %
[2017-07-06 09:43] LABS: Alanine Aminotransferase 32 Units/L (7-52); Albumin 3.9 g/dL (3.5-5.7); Albumin/Globulin Ratio 1.4 (1.1-2.2); Alkaline Phosphatase 59 Units/L (34-104); Aspartate Amino Transferase 19 Units/L (13-39); BUN/Creatinine Ratio 4 (6-26); Bilirubin,Total 0.3 mg/dL (0.3-1.0); Blood Urea Nitrogen 5 mg/dL (6-20); Calcium 9.2 mg/dL (8.6-10.3); Carbon Dioxide 29 mEq/L (23-29); Chloride 105 mEq/L (98-107); Globulin 2.8 g/dL (2.4-3.5); Glucose 98 mg/dL (70-105); Lipase 15 Units/L (11-82); Osmolality,Calculated 283 (280-300); Potassium 3.6 mEq/L (3.5-5.1); Sodium 138 mEq/L (136-145); Total Protein 6.7 g/dL (6.4-8.9); eGFR For Non-African Americans > 60 (> 60)
[2017-07-06] MEDS: Ipratropium/Albuterol Neb 3 ML IH SCH ×2 (10:18→16:22)
[2017-07-06] MEDS: Piperacillin/Tazobactam 3.375 GM in 0.9 % Sodium Chloride Mini Bag 100 ML IVPB SCH ×2 (10:42→22:33)
[2017-07-06] MEDS: 0.9 % Sodium Chloride 1,000 ML IVC SCH ×3 (10:43→23:40)
[2017-07-06] MEDS: Acetaminophen IV 500 MG/50 ML INFUS..BTL IVPB SCH ×3 (11:38→21:02)
[2017-07-06] MEDS ORDERED: *HR* FentaNYL (PF) 100 MCG/2 ML VIAL ONE ×2 (15:39→16:50)
[2017-07-06] MEDS ORDERED: Lidocaine -MPF 2% 2 ML VIAL ONE (15:39)
[2017-07-06] MEDS ORDERED: *HR* Propofol 200 MG/20 ML VIAL IVP ONE ×4 (15:39→16:55)
[2017-07-06] MEDS ORDERED: *HR* Midazolam HCl 2 MG/2 ML VIAL ONE (15:39)
[2017-07-06] MEDS ORDERED: Dexamethasone 4 MG/ML VIAL ONE (15:39)
[2017-07-06] MEDS ORDERED: Ondansetron 4 MG/2 ML VIAL ONE ×2 (15:39→16:10)
[2017-07-06] MEDS ORDERED: Lidocaine -MPF 4% 5 ML AMPUL ONE (15:42)
[2017-07-06] MEDS ORDERED: Neostigmine Methylsulfate 3 MG/3 ML SYRINGE ONE ×2 (15:42→16:41)
--- NOTE | 2017-07-06 15:59 | Internal Med Progress Note ---
Date of Encounter: 07/06/17 Time of Encounter: 15:57 - Assessment and plan (1) Biliary dyskinesia Current Visit: Yes Status: Acute Assessment and plan: symptomatic with ABD pain. CT abdomen showed no evidence of acute intra- abdominal inflammatory process. Right upper quadrant ultrasound showed no evidence of gallstones or thickened gallbladder wall. HIDA scan remarkable. Liver enzymes and bilirubin noted to be normal. Serum lipase is minimally elevated at 93. History is consistent with biliary disease. Evaluated by general surgery who feels symptoms consistent with biliary colic and laparoscopic cholecystectomy planned on 07/06/17. Cont pain control. Post-op diet per General Surgery (2) GERD (gastroesophageal reflux disease) Current Visit: Yes Status: Chronic Assessment and plan: cont PPI Qualifiers: Esophagitis presence: esophagitis presence not specified Qualified Code(s) : K21.9 - Gastro-esophageal reflux disease without esophagitis (3) DVT prophylaxis Current Visit: Yes Status: Acute Assessment and plan: heparin - Subjective Interval history: Seen and examined at bedside. Patient is new to me. Information obtained from chart review and patient report. Says he is tired and has some mild abdominal pain, otherwise has no complaints. No chest pain or shortness of breath. Laparoscopic cholecystectomy plan for 1500 today. - Constitutional Vitals: Temp Pulse Resp BP Pulse Ox 97.8 F 84 16 114/77 95 07/06/17 12:06 07/06/17 12:06 07/06/17 12:06 07/06/17 12:06 07/06/17 12:06 General appearance: Present: cooperative, A&O X 3, morbidly obese, answers questions appropriately - Head Head exam: Present: atraumatic, normocephalic - Eye Eye exam: Present: PERRL, conjuntiva pink, sclera anicteric Pupils: Present: PERRL - Neck Neck exam general surgery: Present: supple, trachea midline. Absent: lymphadenopathy - Respiratory Respiratory exam: Present: CTAB. Absent: accessory muscle use, rales, rhonchi, wheezes - Cardiovascular Cardiovascular exam: Present: RRR, +S1, +S2. Absent: diastolic murmur, gallop, rubs, systolic murmur - GI/Abdominal GI/Abdominal exam: Present: normal bowel sounds, soft, no peritoneal signs. Absent: distended, tenderness - Extremities Exam Extremities exam: Present: warm, radial pulses palpable and symmetrical. Absent : calf tenderness, cyanotic, pedal edema - Neurological Exam Neurological exam: Present: CN II-XII intact, oriented X3, no focal deficits. Absent: pronater drift, facial droop, speech deficit - Skin Skin exam: Present: dry, intact Internal Medicine: Result - Labs CBC & Chem 7: 07/06/17 09:08 07/06/17 09:08 Labs: Short CBC 07/06/17 Range/Units 09:08 WBC 7.1 (4.3-11.1) K/mcL Hgb 13.6 (12.9-16.9) g/dL Hct 41.3 (37.5-50.1) % Plt Count 332 (140-400) K/mcL Neutrophils # 3.4 (1.6-8.9) K/mcL BMP 07/06/17 09:08 Sodium 138 Potassium 3.6 Chloride 105 Carbon Dioxide 29 BUN 5 L Creatinine 1.29 Glucose 98 Calcium 9.2 Liver Function 07/06/17 Range/Units 09:08 Total Bilirubin 0.3 (0.3-1.0) mg/dL AST 19 (13-39) Units/L ALT 32 (7-52) Units/L Alkaline Phosphatase 59 (34-104) Units/L Albumin 3.9 (3.5-5.7) g/dL - ABG Interpretation ABG results: PT/INR, D-dimer PT 12.4 Seconds (9.4-12.1) H 07/05/17 04:02 - Impressions Impressions Liver Scan Nuclear Medicine 07/05/17 11:45 IMPRESSION: Patent cystic duct with normal gallbladder ejection fraction of 83%. D/ / Amaury Steele MD / Amaury Steele MD Interpreting Provider: Amaury Steele MD Consult Discharge Plan - Plan Referrals: Ira Carlos HEEL CUTTER [Advanced Practice Nurse] - 07/22/17 9:00 am
[2017-07-06] MEDS ORDERED: CefOXitin 2,000 MG VIAL ONE (16:10)
[2017-07-06] MEDS ORDERED: *HR* Promethazine 25 MG/ML VIAL IVP PRN ×2 (16:29→18:46)
[2017-07-06] MEDS ORDERED: *HR* OxyCODONE Immed Rel 5 MG TABLET PO PRN (16:29)
[2017-07-06] MEDS ORDERED: cefOXitin 2,000 MG in Water for inj. (sterile) 10 ML IVP ONE (16:48)
--- NOTE | 2017-07-06 16:52 | Operative Note ---
Date of procedure: 07/06/17 Pre-op diagnosis: biliary dyskinesia Post-op diagnosis: same Procedure: Laparoscopic cholecystectomy Complications: none immediate Anesthesia: GETA, local Local Anesthetics: 0.5% Sensorcaine HCL SubQ (cc) Surgeon: Estrellita Santiago Was there an legislative assistant present: Yes [employer] Storage: Maria C Fernando Estimated blood loss (cc): 5 Specimen: gallbladder Condition: stable Disposition: PACU Procedure in Detail: The patient was brought into the operating suite and placed supine on the operating table. Sign-in was performed and everyone was in agreement. Anesthesia was induced and patient was endotracheally intubated by anesthesia without incident and they also placed an OG tube. The abdomen was prepped and draped in the usual sterile fashion. A timeout was performed again everyone was in agreement. A supraumbilical incision was made through the skin into the subcutaneous tissue with an 11 blade. Towel clamps were placed on either side of the umbilicus for retraction. S retractors were used to dissect down to the anterior abdominal wall linea alba fascia. A Veress needle was placed through this incision and a water drop test confirmed placement and the abdomen was insufflated. The abdomen was entered with a 5 mm 0 degree laparoscope on a 5 mm X-brady trocar. The area and entry was visualized was no bleeding and no apparent bowel injury. A 5 mm subxiphoid port was placed under direct visualization after first incising the skin with an 11 blade. A right upper quadrant subcostal position midclavicular line 5 mm port was placed under direct visualization after first incising skin with 11 blade. The laparoscope was placed in this and we exchanged the supraumbilical port for a 12 mm port under direct visualization. The last 5 mm port was placed in the right upper quadrant subcostal position anterior axillary line after first incising the skin with an 11 blade. The patient was placed in steep reverse Trendelenburg left side down position. The dome of the gallbladder was grasped and retracted cephalad. Omental adhesions to the body and infundibulum of the gallbladder were taken down bluntly with the [place]. The infundibulum was grasped and retracted laterally. Using the [place] we dissected out the cystic duct and cystic artery. Three 5 mm hemoclips were placed distally on the cystic duct one proximally and it was transected with curved scissors. The cystic artery was doubly clipped proximally, once distally and transected with curved scissors. The gallbladder was removed off the cystic plate with the Bovie. Any bleeding points were stopped with the Bovie. The gallbladder was placed in a laparoscopic Endo Catch bag and removed via the supraumbilical incision site. The inferior edge of the liver was bluntly retracted cephalad and the cystic plate was copiously irrigated with sterile saline. There was no bleeding or apparent bile leak from the cystic plate and the clips on the cystic artery and duct were intact. All irrigation was suctioned free from the abdomen. All insufflation was suctioned free from the abdomen and the ports removed. The abdominal wall at the supraumbilical incision site was closed with a 0 Vicryl [id number] stitch. 30 mL of 0.5% Marcaine was injected subcutaneously at the 4 port sites. The skin at the three 5 mm port sites were closed with 4-0 Monocryl interrupted subcuticular stitches. The skin at the supraumbilical incision site was closed with a 4-0 Monocryl running subcuticular stitch. Steri -Strips were applied to all wounds. The patient was awoken in the operating suite having tolerated the procedure well and were taken to PACU in stable condition after all lap and ensuring counts were correct at the end of the case.
[2017-07-06] MEDS ORDERED: Metoclopramide 10 MG/2 ML VIAL ONE (17:07)
[2017-07-06] MEDS ORDERED: Ketorolac 30 MG/ML VIAL ONE (17:13)
[2017-07-06] MEDS ORDERED: *HR* Promethazine 25 MG/ML VIAL ONE (17:16)
[2017-07-06] MEDS ORDERED: Scopolamine Patch 1.5 MG PATCH.TD72 ONE (17:18)
[2017-07-06] MEDS: *HR* Labetalol 20 MG/4 ML SYRINGE IVP PRN ×2 (17:25→17:40)
[2017-07-06] MEDS: MORPHINE SUL Oral CONC 10 MG/0.5 ML ORAL.SYG SL PRN ×3 (17:37→18:04)
--- NOTE | 2017-07-06 18:26 | Anesthesia Evaluation Post Op ---
Date of Encounter: 07/06/17 Time of Encounter: 18:26 - Lungs Lungs: Clear Ascult./Percussion - Airway Airway: Non-obstructed - Cardiovascular Regular Rate - Mental Status Mental Status: Asleep with brisk response to light stimulation - Nausea Vomiting Nausea Vomiting: Not Present - Hydration Hydration: NPO - Discharge PostOp Status: Transfer Patient to floor
--- NOTE | 2017-07-06 18:36 | Electrocardiograph Report ---
[place] [id number] Test Date: 2017-07-04 Pat Name: Scooter Soriano Department: 103 Room: 3A44 Gender: M Sales Advisor: : 1985 Requested By: Dameon Crooks Order Number: [id number] Reading MD: Dameon Dunham Measurements Intervals [place] Rate: 82 P: 39 [place]: 141 QRS: 52 QRSD: 104 T: 42 QT: 365 QTc: 403 Interpretive Statements SINUS RHYTHM Electronically Signed On 07-06-2017 18:35:25 EST by Dameon Dunham
[2017-07-06] MEDS ORDERED: Naloxone 0.4 MG/ML INJ IVP PRN (18:46)
[2017-07-06] MEDS ORDERED: Ondansetron 4 MG/2 ML VIAL IVP PRN (18:46)
[2017-07-06] MEDS: *HR* OxyCODONE/APAP 5/325 TABLET PO PRN ×2 (19:05→23:39)
[2017-07-06] MEDS ORDERED: Ipratropium/Albuterol Neb 3 ML IH SCH (20:00)
[2017-07-06] MEDS: 0.9 % Sodium Chloride w KCl 20 MEQ/1,000 ML MLS IVC SCH (22:32)
[2017-07-07] MEDS: *HR* OxyCODONE Immed Rel 5 MG TABLET PO PRN ×3 (01:46→14:06)
[2017-07-07] MEDS: *HR* OxyCODONE/APAP 5/325 TABLET PO PRN ×3 (05:13→15:31)
[2017-07-07] MEDS ORDERED: Pantoprazole 40 MG VIAL IVP SCH (06:00)
[2017-07-07] MEDS ORDERED: *HR* Heparin 5,000 UNIT/ML VIAL SQ SCH (06:00)
[2017-07-07 06:31] LABS: Hematocrit 42.5 % (37.5-50.1); Hemoglobin 14.6 g/dL (12.9-16.9); Mean Corpuscular HGB Conc 34.4 g/dL (31.6-35.5); Mean Corpuscular Volume 87.4 fL (83.0-100.0); Mean Platelet Volume 9.6 fL (9.4-12.4); Platelet Count 410 K/mcL (140-400); Red Blood Count 4.86 M/mcL (4.19-5.50); Red Cell Distribution Width 12.7 % (11.5-14.5)
[2017-07-07 06:43] LABS: Alanine Aminotransferase 53 Units/L (7-52); Albumin 4.3 g/dL (3.5-5.7); Albumin/Globulin Ratio 1.4 (1.1-2.2); Alkaline Phosphatase 66 Units/L (34-104); Aspartate Amino Transferase 41 Units/L (13-39); BUN/Creatinine Ratio 6 (6-26); Bilirubin,Total 0.5 mg/dL (0.3-1.0); Blood Urea Nitrogen 6 mg/dL (6-20); Calcium 9.9 mg/dL (8.6-10.3); Carbon Dioxide 25 mEq/L (23-29); Chloride 107 mEq/L (98-107); Globulin 3.1 g/dL (2.4-3.5); Glucose 112 mg/dL (70-105); Osmolality,Calculated 270 (280-300); Potassium 3.7 mEq/L (3.5-5.1); Sodium 131 mEq/L (136-145); Total Protein 7.4 g/dL (6.4-8.9); eGFR For Non-African Americans > 60 (> 60)
[2017-07-07] MEDS: 0.9 % Sodium Chloride 1,000 ML IVC SCH (07:35)
--- NOTE | 2017-07-07 10:20 | General Surgery Progress Note ---
Date of Encounter: 07/07/17 Time of Encounter: 10:17 - Assessment and Plan (1) Abdominal pain Current Visit: Yes Status: Acute POD#1 from laparoscopic cholecystectomy with Dr. Santiago secondary to biliary dyskinesia. -tolerating CLD, no nausea or vomitting, positive flatus. Abdomen soft and mildly tender to palpation. -will advance to regular diet. -Continue PO pain control with percocet, oxycodone, and ibuprofen. -anti-emetics as needed for nausea. -May discharge from a surgical standpoint when medically appropriate. Surgery to sign off. Please call with any further questions or concerns. Follow-up scheduled as outlined in discharge planning. Qualifiers: Abdominal location: right upper quadrant Qualified Code(s): R10.11 - Right upper quadrant pain (2) Pancreatitis Current Visit: Yes Status: Resolved managment per primary team Qualifiers: Chronicity: acute Pancreatitis type: biliary Acute pancreatitis complication: no infection or necrosis Qualified Code(s): K85.10 - Biliary acute pancreatitis without necrosis or infection (3) DVT prophylaxis Current Visit: Yes Status: Acute Heparin subcutaneous. Subjective Patient reports: still having pain, tolerating liquids well, voiding w/o difficulty, flatus, no bowel movement, afebrile (Patient states his surgical pain is severe and intense. He rates it as a 9 out of 10. Patient was resting comfortably during examination.) Objective Vital Signs - Last 8 Hours Temp Pulse Resp BP Pulse Ox 07/07/17 08:33 98.2 F 112 18 137/93 95 07/07/17 08:00 144/94 Intake and Output 07/06/17 07/07/17 07/07/17 23:59 07:59 15:59 Intake Total 1000 / 1000 0 / 0 Output Total 455 / 455 0 / 0 400 / 400 Balance -445 / -445 1000 / 1000 -400 / -400 Intake: IV Fluids 1000 / 1000 0.9 % Sodium Chloride 1,000 ML 1000 / 1000 @ 125 mls/hr IVC .Q8H DRAKE Rx#: [id number] Mefoxin 2,000 MG In Water for inj. (sterile) 10 ML @ 150 mls/ hr IVP ONCE ONE Rx#:[id number] Oral 0 / 0 0 / 0 Output: Urine 450 / 450 0 / 0 400 / 400 Estimated Blood Loss 5 / 5 - General physical appearance well developed, well nourished, no distress - Respiratory normal expansion, normal respiratory effort, clear to percussion, clear to auscultation - Cardiovascular Cardiovascular exam: Present: tachycardia, regular rhythm, no murmurs/rubs/ gallops - Abdomen Abdomen: Present: bowel sounds present, soft. Absent: guarding, rebound, rigid Abdominal Tenderness: RUQ (Moderate), diffusely Hernia: none - Incision Incision: Present: clean and dry, intact - Neurologic CN 2-12 grossly intact, normal coordination - Musculoskeletal normal gait, normal posture - Psychiatric oriented to time, oriented to person, oriented to place, speech is normal, memory intact - Labs 07/07/17 06:02 07/07/17 06:02 Diabetes panel 07/07/17 Range/Units 06:02 Sodium 131 L (136-145) mEq/L Potassium 3.7 (3.5-5.1) mEq/L Chloride 107 (98-107) mEq/L Carbon Dioxide 25 (23-29) mEq/L BUN 6 (6-20) mg/dL Creatinine 1.02 (0.70-1.30) mg/dL Glucose 112 H (70-105) mg/dL Calcium 9.9 (8.6-10.3) mg/dL AST 41 H (13-39) Units/L ALT 53 H (7-52) Units/L Alkaline Phosphatase 66 (34-104) Units/L Albumin 4.3 (3.5-5.7) g/dL Calcium panel 07/07/17 Range/Units 06:02 Calcium 9.9 (8.6-10.3) mg/dL Albumin 4.3 (3.5-5.7) g/dL Pituitary panel 07/07/17 Range/Units 06:02 Sodium 131 L (136-145) mEq/L Potassium 3.7 (3.5-5.1) mEq/L Chloride 107 (98-107) mEq/L Carbon Dioxide 25 (23-29) mEq/L BUN 6 (6-20) mg/dL Creatinine 1.02 (0.70-1.30) mg/dL Glucose 112 H (70-105) mg/dL Calcium 9.9 (8.6-10.3) mg/dL Adrenal panel 07/07/17 Range/Units 06:02 Sodium 131 L (136-145) mEq/L Potassium 3.7 (3.5-5.1) mEq/L Chloride 107 (98-107) mEq/L Carbon Dioxide 25 (23-29) mEq/L BUN 6 (6-20) mg/dL Creatinine 1.02 (0.70-1.30) mg/dL Glucose 112 H (70-105) mg/dL Calcium 9.9 (8.6-10.3) mg/dL Total Bilirubin 0.5 (0.3-1.0) mg/dL AST 41 H (13-39) Units/L ALT 53 H (7-52) Units/L Alkaline Phosphatase 66 (34-104) Units/L Albumin 4.3 (3.5-5.7) g/dL - VTE Documentation of Mechanical Device: Intermittent pneumatic compression device Consult Discharge Plan - Plan Additional Instructions: General Surgical Discharge Instructions 1. No pushing, pulling, or lifting greater than 15 lbs for 6 weeks. 2. You may shower beginning today, but no tub baths, soaking, or swimming for 2 weeks. 3. You may resume driving when you are off narcotics and are safe to react in a car. 4. Take ibuprofen every 8 hours if needed for discomfort. If this does not relieve discomfort, you may take the as needed Percocet. Take narcotics only as directed. Do not take more narcotics then directed and do not share your narcotics with any other person. Do not drink alcohol while on narcotics. 5. Take stool softeners (Colace) or a water based laxative (Miralax) while taking narcotics. You may hold for loose stools. 6. Report any fevers greater than 100.5F, increase abdominal discomfort, drainage that looks like pus, increased redness or pain at the surgical site, or any vomiting. 7. Report any pain in the calves, shortness of breath, or rapid heartbeat. 8. Follow-up in the office as directed. 9. If you were prescribed antibiotics, do not stop them without talking to your provider. Referrals: Ira Carlos CNP [Advanced Practice Nurse] - 07/22/17 9:00 am Prescriptions: OxyCODONE/APAP 5/325 [Percocet 5/325 MG] 1 each PO Q4HR PRN 5 Days #28 tablet PRN Reason: Pain Ibuprofen [Motrin] 600 mg PO Q6HR PRN 7 Days #30 tablet PRN Reason: Pain Docusate [Colace] 100 mg PO BID #30 capsule
[2017-07-07] MEDS ORDERED: Ibuprofen 600 MG TABLET PO PRN (10:24)
--- NOTE | 2017-07-07 15:02 | Discharge Summary ---
Orders not resulted at time of discharge: Pending orders 07/06/17 16:48 Surgical Pathology [PTH] Routine Date of Encounter: 07/07/17 Time of Encounter: 15:02 - Discharge Diagnosis (1) Biliary dyskinesia Priority: Primary Status: Acute Comments: symptomatic with ABD pain. CT abdomen showed no evidence of acute intra- abdominal inflammatory process. Right upper quadrant ultrasound showed no evidence of gallstones or thickened gallbladder wall. HIDA scan remarkable. Liver enzymes and bilirubin noted to be normal. Serum lipase is minimally elevated at 93. History is consistent with biliary disease. Evaluated by general surgery who felt symptoms consistent with biliary colic. S/p laparoscopic cholecystectomy on 07/06/[address] Santiago. Discharge home with Percocet, ibuprofen and PRN zofran. Follow-up with General Surgery Hospital course: Mr. Soriano is a 32 year old male with no previous past medical history who presented to [facility] on 07/04/17 complaints of abdominal pain. He was found to have biliary colic and underwent a laparoscopic cholecystectomy. He was discharged home stable condition with outpatient follow -up. Please see assessment and plan for further details. Discharge discussed with: patient, family - Time Spent with Patient Total time spent providing and/or coordinating discharge services: Less than 30 minutes - Discharge Medications Prescriptions: OxyCODONE/APAP 5/325 [Percocet 5/325 MG] 1 each PO Q4HR PRN 5 Days #28 tablet PRN Reason: Pain Ibuprofen [Motrin] 600 mg PO Q6HR PRN 7 Days #30 tablet PRN Reason: Pain Ondansetron ODT [Zofran ODT] 4 mg SL Q6HR PRN #30 tab.rapdis PRN Reason: Nausea Docusate [Colace] 100 mg PO BID #30 capsule Home Medications: Ranitidine HCl [Acid Informatics Scientist] 150 mg PO BID 07/05/17 [History] Docusate [Colace] 100 mg PO BID #30 capsule 07/07/17 [Rx] Ibuprofen [Motrin] 600 mg PO Q6HR PRN 7 Days #30 tablet 07/07/17 [Rx] Ondansetron ODT [Zofran ODT] 4 mg SL Q6HR PRN #30 tab.rapdis 07/07/17 [Rx] OxyCODONE/APAP 5/325 [Percocet 5/325 MG] 1 each PO Q4HR PRN 5 Days #28 tablet [Rx] Allergies/Adverse Reactions: 3 Allergy/AdvReac Type Severity Reaction Status Date / Time No Known Allergies Allergy Verified 07/05/17 08:04 Date of admission: 07/04/17 20:39 Primary care physician: PCP NONE Consults: 07/05/17 09:38 Consult to Surgery [CONS] Routine Consulting Provider: Surgery [facility] Reason for Consult: RUQ abdominal pain, biliary colic Call Completed: Yes Discharging clinician: Kika Pompa Anticipated date of discharge: 07/07/17 - Constitutional Vitals: Temp Pulse Resp BP Pulse Ox 98.0 F 105 18 175/93 95 07/07/17 10:41 07/07/17 10:41 07/07/17 10:41 07/07/17 10:41 07/07/17 10:41 General appearance: Present: cooperative, A&O X 3, morbidly obese, answers questions appropriately - Head Head exam: Present: atraumatic, normocephalic - Eye Eye exam: Present: PERRL, conjuntiva pink, sclera anicteric Pupils: Present: PERRL - Neck Neck exam general surgery: Present: supple, trachea midline. Absent: lymphadenopathy - Respiratory Respiratory exam: Present: CTAB. Absent: accessory muscle use, rales, rhonchi, wheezes - Cardiovascular Cardiovascular exam: Present: RRR, +S1, +S2. Absent: diastolic murmur, gallop, rubs, systolic murmur - GI/Abdominal GI/Abdominal exam: Present: normal bowel sounds, soft, tenderness, no peritoneal signs. Absent: distended Additional comments: S/p lap lalo sites - Extremities Exam Extremities exam: Present: warm, radial pulses palpable and symmetrical. Absent : calf tenderness, cyanotic, pedal edema - Neurological Exam Neurological exam: Present: CN II-XII intact, oriented X3, no focal deficits. Absent: pronater drift, facial droop, speech deficit - Skin Skin exam: Present: dry, intact - Patient Status Disposition: Home, Self-Care Condition: Good Functional capacity at discharge: independent ambulation Overall status at discharge: patient is progressing back to baseline - Discharge Instructions Instructions: Laparoscopic Cholecystectomy (DC) Follow Up With: Ira Carlos TAKE DOWN INSPECTOR [Advanced Practice Nurse] - 07/22/17 9:00 am Additional Instructions: General Surgical Discharge Instructions 1. No pushing, pulling, or lifting greater than 15 lbs for 6 weeks. 2. You may shower beginning today, but no tub baths, soaking, or swimming for 2 weeks. 3. You may resume driving when you are off narcotics and are safe to react in a car. 4. Take ibuprofen every 8 hours if needed for discomfort. If this does not relieve discomfort, you may take the as needed Percocet. Take narcotics only as directed. Do not take more narcotics then directed and do not share your narcotics with any other person. Do not drink alcohol while on narcotics. 5. Take stool softeners (Colace) or a water based laxative (Miralax) while taking narcotics. You may hold for loose stools. 6. Report any fevers greater than 100.5F, increase abdominal discomfort, drainage that looks like pus, increased redness or pain at the surgical site, or any vomiting. 7. Report any pain in the calves, shortness of breath, or rapid heartbeat. 8. Follow-up in the office as directed. 9. If you were prescribed antibiotics, do not stop them without talking to your provider. - Diet and Activity Activity: increase activity as tolerated Diet: advance to your usual diet - VTE Documentation of Mechanical Device: Intermittent pneumatic compression device
[2017-07-07 15:15] VITALS: BP 122/81
== END 2017-07-07 16:10 | disposition home or self-care (01) ==
LOC: 3ANU 16:33 → EMEROO 16:33 → 3ANU 21:19
PROVIDERS: ADMIT Pediatrics; ATTEND Internal Medicine

== ENCOUNTER 2017-09-29 08:31 | Observation (INO) ==
[2017-09-29] MEDS ORDERED: Pantoprazole 40 MG VIAL IVP ONE (09:05)
[2017-09-29] MEDS ORDERED: Ondansetron 4 MG/2 ML VIAL IVP ONE (09:05)
[2017-09-29 09:32] LABS: Basophils % 0.2 %; Eosinophils # 0.1 K/mcL (0.0-0.6); Eosinophils % 0.5 %; Hematocrit 41.9 % (37.5-50.1); Immature Granulocytes % 0.3 % (0-4); Lymphocytes # 1.6 K/mcL (0.6-4.6); Lymphocytes % 12.9 %; Mean Corpuscular HGB Conc 34.4 g/dL (31.6-35.5); Mean Corpuscular Hemoglobin 30.6 pg (28.0-33.3); Mean Corpuscular Volume 89.1 fL (83.0-100.0); Mean Platelet Volume 9.7 fL (9.4-12.4); Monocytes # 0.7 K/mcL (0.0-1.3); Monocytes % 5.8 %; Neutrophils # 9.7 K/mcL (1.6-8.9); Platelet Count 303 K/mcL (140-400); Red Cell Distribution Width 12.4 % (11.5-14.5); Segmented Neutrophils % 80.3 %
[2017-09-29 09:33] LABS: Hemoglobin 14.4 g/dL (12.9-16.9)
[2017-09-29] MEDS ORDERED: Prochlorperazine 10 MG/2 ML VIAL IVP ONE (09:42)
[2017-09-29] MEDS ORDERED: *HR* FentaNYL (PF) 100 MCG/2 ML VIAL IVP ONE (09:47)
[2017-09-29 09:52] LABS: Alanine Aminotransferase 35 Units/L (7-52); Albumin 4.2 g/dL (3.5-5.7); Albumin/Globulin Ratio 1.4 (1.1-2.2); Alkaline Phosphatase 59 Units/L (34-104); Aspartate Amino Transferase 19 Units/L (13-39); BUN/Creatinine Ratio 13 (6-26); Bilirubin,Direct 0.2 mg/dL (0.0-0.2); Bilirubin,Indirect 0.4 mg/dL (0.0-1.2); Bilirubin,Total 0.6 mg/dL (0.3-1.0); Blood Urea Nitrogen 14 mg/dL (6-20); Calcium 9.3 mg/dL (8.6-10.3); Carbon Dioxide 24 mEq/L (23-29); Chloride 104 mEq/L (98-107); Globulin 2.9 g/dL (2.4-3.5); Glucose 107 mg/dL (70-105); Lipase 18 Units/L (11-82); Osmolality,Calculated 285 (280-300); Potassium 3.4 mEq/L (3.5-5.1); Sodium 137 mEq/L (136-145); Total Protein 7.1 g/dL (6.4-8.9); eGFR For African Americans > 60 (> 60); eGFR For Non-African Americans > 60 (> 60)
[2017-09-29] MEDS ORDERED: 0.9 % Sodium Chloride 1,000 ML IVC ONE (10:09)
--- NOTE | 2017-09-29 10:24 | Emergency Department Note ---
Disposition Clinical Impression: Nausea & vomiting Qualifiers: Vomiting type: unspecified Vomiting Intractability: intractable Qualified Code( s): R11.2 - Nausea with vomiting, unspecified Abdominal pain Qualifiers: Abdominal location: epigastric Qualified Code(s): R10.13 - Epigastric pain Disposition: Admitted As Inpatient Condition: Fair Reasons to Return/Additional Instructions: referred to GI doctor, return to ER for worsening abdominal pain, nausea/ vomiting, chill and fever, or other concerns. Prescriptions: Ondansetron ODT [Zofran ODT] 4 mg SL Q6HR #16 tab.rapdis Promethazine [Phenergan] 25 mg PO Q8HR #30 tablet Dicyclomine [Bentyl] 10 mg PO QID #30 capsule Omeprazole [PriLOSEC] 40 mg PO DAILY #30 cap Referrals: Luke Man DO [Primary Care Provider] - [facility] [Provider Group] Forms: ED Satisfaction Letter, Work/School Release Abdominal Pain HPI - General Chief Complaint: ED Abdominal Pain Stated Complaint: ABD Pain N/V Time Seen by Provider: 09/29/17 08:58 Source: patient, family Nursing Notes Reviewed: Yes Vital Signs Reviewed: Yes - History of Present Illness HPI Narrative: 32-year-old male presents with intractable abdominal pain nausea and vomiting. Patient is stated his symptoms started a 6 month ago. He had gallbladder removed in June this year. Last time abdominal CT was in July. No findings to explained his symptoms. Pt stated in the past one and half month, he has constant pain and nausea/vomiting. He vomited bile liquid with blood clot sometimes. He couldn't keep any food and fluids down. He lost 30 lbs in 3 months. Pt reported intermittent diarrhea sometimes. No chill and fever. Pt Subjective Complaint: abdominal pain Consistency: intermittent Pain Scale: 10 - Related Data Previous Rx's Medication Instructions Recorded Sucralfate [Carafate] 1 gm PO BID #60 tablet 09/12/17 Ranitidine HCl [Acid Folder Inspector] 150 mg PO BID #60 tablet 09/24/17 Dicyclomine [Bentyl] 10 mg PO QID #30 capsule 09/29/17 Omeprazole [PriLOSEC] 40 mg PO DAILY #30 cap 09/29/17 Ondansetron ODT [Zofran ODT] 4 mg SL Q6HR #16 tab.rapdis 09/29/17 Promethazine [Phenergan] 25 mg PO Q8HR #30 tablet 09/29/17 Allergies Allergy/AdvReac Type Severity Reaction Status Date / Time No Known Allergies Allergy Verified 09/29/17 08:35 Constitutional: Denies: fever, chills, weakness, weight change Eyes: Denies: eye pain, eye discharge, vision change ENT ED: Denies: ear pain, throat pain, dental pain, hearing loss, epistaxis, congestion, dysphagia Cardiovascular: Denies: chest pain, palpitations, dyspnea on exertion, edema, syncope Respiratory: Denies: cough, dyspnea, wheezes, hemoptysis, stridor Gastrointestinal: Reports: abdominal pain, nausea, vomiting. Denies: diarrhea, constipation, hematemesis, melena, hematochezia Genitourinary: Denies: urgency, dysuria, frequency, hematuria Musculoskeletal: Denies: back pain, neck pain, arthralgia, myalgia Integumentary: Denies: rash, abrasion, lesions Neurological: Denies: headache, weakness, numbness, paresthesias, confusion, abnormal gait, vertigo Psychiatric: Denies: anxiety, depression, suicidal thoughts, homicidal thoughts , auditory hallucinations, visual hallucinations Endocrine: Denies: fatigue Hematological/Lymphatic: Denies: easy bleeding, easy bruising Allergic/Immunologic: Denies: facial swelling, urticaria Abdominal Pain PMH - Past Medical History Medical history: Reports: GERD, other Male Surgical History: Reports: cholecystectomy Psychiatric history: Reports: anxiety - Social History Smoking status: Former smoker Alcohol use: Reports: none Drug use: Reports: none Physical Exam - General Limitations: no limitations General appearance: alert, in no apparent distress - Head Head exam: atraumatic, normocephalic, normal inspection - Eye Eye exam: Present: normal appearance, PERRL, EOMI - ENT ENT exam: normal exam, normal oropharynx, mucous membranes moist - Expanded ENT Exam External ear exam: Present: normal external inspection Mouth exam: Present: normal external inspection Teeth exam: Present: normal inspection Throat exam: Present: normal inspection - Neck Neck exam: Present: normal inspection, full ROM, trachea midline - Chest Chest inspection: Present: normal inspection, symmetric chest wall rise - Respiratory Respiratory exam: Present: normal lung sounds bilaterally - Cardiovascular Cardiovascular exam: Present: regular rate, normal rhythm, normal heart sounds - Abdominal Exam Abdominal exam: Present: soft, tenderness. Absent: distention, guarding, rebound, rigidity Abdominal tenderness: Present: RUQ, LUQ, epigastrium - Extremities Exam Extremities exam: Present: normal inspection, full ROM. Absent: tenderness, pedal edema - Expanded Upper Extremity Exam Shoulder exam: Present: normal inspection, full ROM Arm exam: Present: normal inspection, full ROM Elbow exam: Present: normal inspection, full ROM Forearm/Wrist exam: Present: normal inspection, full ROM Hand exam: Present: normal inspection, full ROM Vascular exam: Normal: capillary refill, radial pulse - Expanded Lower Extremity Exam Hip/Pelvis exam: Present: normal inspection, full ROM Upper leg exam: Present: normal inspection, full ROM Knee exam: Present: normal inspection, full ROM Lower leg exam: Present: normal inspection, full ROM Ankle exam: Present: normal inspection, full ROM Foot/toe exam: Present: normal inspection, full ROM Neurovascular/Tendon exam: Absent: motor deficit, sensory deficit, tendon deficit - Back Exam Back exam: Present: normal inspection, full ROM. Absent: tenderness - Neurological Exam Neurological exam: Present: alert, oriented X3 - Expanded Neurological Exam Patient oriented to: Present: person, place, time Coma Scale Eye Opening: Spontaneous Coma Scale Motor Response: Obeys Commands Coma Scale Verbal Response: Oriented Coma Scale Total: 15 - Psychiatric Psychiatric exam: Present: normal affect, normal mood - Skin Skin exam: Present: warm, dry, intact, normal color Course Vital Signs Temperature 98.5 F 09/29/17 08:33 Pulse Rate 92 09/29/17 08:33 Respiratory Rate 18 09/29/17 08:33 Blood Pressure 144/88 09/29/17 08:33 O2 Sat by Pulse Oximetry 98 09/29/17 08:33 Temperature 98.5 F 09/29/17 08:33 Pulse Rate 75 09/29/17 11:53 Respiratory Rate 20 09/29/17 11:53 Blood Pressure 158/94 09/29/17 11:53 O2 Sat by Pulse Oximetry 97 09/29/17 11:53 Oxygen Delivery Oxygen Delivery Room Air Abdominal Pain - MDM Narrative Medical decision making narrative: 32 year old male presents with intractable nausea and vomiting for 6 months. Pt stated in the past one and half month, he couldn't keep food and liquid down. He had multiple times vomiting daily including food, bile liquid or blood clot sometimes. Pt stated he also have upper abdominal pain. He lost 30 lbs in the past 3 months. Pt denied headache, vision change and focal extremity weakness. Pt visited ER before. He had unremarkable abdomen CT in July. Pt stated he was discharged home when symptoms was controlled. But the symptoms will come back at home. Physical exam: alert and oriented, no tachycardia, abdomen soft, epigastric tender to palpation. No other focal neurology deficit. Today, pt had witnessed three times bile emesis in ER. No improvement of nausea after IV fluids and Zofran, Compazine and Phenagan. However, pt has unremarkable labs and abdomen CT. Hospitalist contacted, pt will be admit to hospital for further evaluation. Dr. ann saw the patient as well and agrees the above plan. - Lab Data Lab results reviewed: Yes I reviewed the patient's lab results. Result diagrams: 09/29/17 09:21 09/29/17 09:21 Lab Results 09/29/17 09/29/17 09/29/17 Range/Units 09:21 09:21 12:55 WBC 12.1 H (4.3-11.1) K/mcL RBC 4.70 (4.19-5.50) M/mcL Hgb 14.4 D (12.9-16.9) g/dL Hct 41.9 (37.5-50.1) % MCV 89.1 (83.0-100.0) fL MCH 30.6 (28.0-33.3) pg MCHC 34.4 (31.6-35.5) g/dL RDW 12.4 (11.5-14.5) % Plt Count 303 (140-400) K/mcL MPV 9.7 (9.4-12.4) fL Immature Gran % 0.3 (0-4) % Seg Neutrophils % 80.3 % Lymphocytes % 12.9 % Monocytes % 5.8 % Eosinophils % 0.5 % Basophils % 0.2 % Neutrophils # 9.7 H (1.6-8.9) K/mcL Lymphocytes # 1.6 (0.6-4.6) K/mcL Monocytes # 0.7 (0.0-1.3) K/mcL Eosinophils # 0.1 (0.0-0.6) K/mcL Basophils # 0.0 (0.0-0.2) K/mcL Sodium 137 (136-145) mEq/L Potassium 3.4 L (3.5-5.1) mEq/L Chloride 104 (98-107) mEq/L Carbon Dioxide 24 (23-29) mEq/L BUN 14 (6-20) mg/dL Creatinine 1.04 (0.70-1.30) mg/dL Est GFR ( Amer) > 60 (> 60) Est GFR (Non-Af Amer) > 60 (> 60) BUN/Creatinine Ratio 13 (6-26) Glucose 107 H (70-105) mg/dL Calculated Osmolality 285 (280-300) Calcium 9.3 (8.6-10.3) mg/dL Total Bilirubin 0.6 (0.3-1.0) mg/dL Direct Bilirubin 0.2 (0.0-0.2) mg/dL Indirect Bilirubin 0.4 (0.0-1.2) mg/dL AST 19 (13-39) Units/L ALT 35 (7-52) Units/L Alkaline Phosphatase 59 (34-104) Units/L Serum Total Protein 7.1 (6.4-8.9) g/dL Albumin 4.2 (3.5-5.7) g/dL Globulin 2.9 (2.4-3.5) g/dL Albumin/Globulin Ratio 1.4 (1.1-2.2) Lipase 18 (11-82) Units/L TSH 1.719 (0.340-5.600) mcIU/mL Urine Color Yellow (Yellow) Urine Clarity Clear (Clear) Urine pH 7.5 (5.0-8.0) pH Units Ur Specific [place] > 1.030 H (1.010-1.025) Urine Protein Negative (Neg-Trace) mg/dL Urine Glucose (UA) Normal (Normal) mg/dL Urine Ketones Negative (Negative) mg/dL Urine Blood Negative (Negative) Urine Nitrite Negative (Negative) Urine Bilirubin Negative (Negative) Urine Urobilinogen Normal (Normal) mg/dL Ur Leukocyte Esterase Negative (Negative) Ur Culture Indicated? NO (NO) Urine Opiates Screen (Iegmyf=521) ng/mL Ur Barbiturates Screen (Nkqyox=639) ng/mL Ur Phencyclidine Scrn (Cutoff=25) ng/mL Ur Amphetamines Screen (Jusiib=4250) ng/mL U Benzodiazepines Scrn (Rmfufn=350) ng/mL Urine Cocaine Screen (Cutoff= 300) ng/mL U Marijuana (THC) Screen (Cutoff = 50) ng/mL 09/29/17 Range/Units 13:04 WBC (4.3-11.1) K/mcL RBC (4.19-5.50) M/mcL Hgb (12.9-16.9) g/dL Hct (37.5-50.1) % MCV (83.0-100.0) fL MCH (28.0-33.3) pg MCHC (31.6-35.5) g/dL RDW (11.5-14.5) % Plt Count (140-400) K/mcL MPV (9.4-12.4) fL Immature Gran % (0-4) % Seg Neutrophils % % Lymphocytes % % Monocytes % % Eosinophils % % Basophils % % Neutrophils # (1.6-8.9) K/mcL Lymphocytes # (0.6-4.6) K/mcL Monocytes # (0.0-1.3) K/mcL Eosinophils # (0.0-0.6) K/mcL Basophils # (0.0-0.2) K/mcL Sodium (136-145) mEq/L Potassium (3.5-5.1) mEq/L Chloride (98-107) mEq/L Carbon Dioxide (23-29) mEq/L BUN (6-20) mg/dL Creatinine (0.70-1.30) mg/dL Est GFR ( Amer) (> 60) Est GFR (Non-Af Amer) (> 60) BUN/Creatinine Ratio (6-26) Glucose (70-105) mg/dL Calculated Osmolality (280-300) Calcium (8.6-10.3) mg/dL Total Bilirubin (0.3-1.0) mg/dL Direct Bilirubin (0.0-0.2) mg/dL Indirect Bilirubin (0.0-1.2) mg/dL AST (13-39) Units/L ALT (7-52) Units/L Alkaline Phosphatase (34-104) Units/L Serum Total Protein (6.4-8.9) g/dL Albumin (3.5-5.7) g/dL Globulin (2.4-3.5) g/dL Albumin/Globulin Ratio (1.1-2.2) Lipase (11-82) Units/L TSH (0.340-5.600) mcIU/mL Urine Color (Yellow) Urine Clarity (Clear) Urine pH (5.0-8.0) pH Units Ur Specific [place] (1.010-1.025) Urine Protein (Neg-Trace) mg/dL Urine Glucose (UA) (Normal) mg/dL Urine Ketones (Negative) mg/dL Urine Blood (Negative) Urine Nitrite (Negative) Urine Bilirubin (Negative) Urine Urobilinogen (Normal) mg/dL Ur Leukocyte Esterase (Negative) Ur Culture Indicated? (NO) Urine Opiates Screen Negative (Bhzkru=869) ng/mL Ur Barbiturates Screen Negative (Wjdnpz=836) ng/mL Ur Phencyclidine Scrn Negative (Cutoff=25) ng/mL Ur Amphetamines Screen Negative (Tdygmg=8278) ng/mL U Benzodiazepines Scrn Negative (Thjncl=388) ng/mL Urine Cocaine Screen Negative (Cutoff= 300) ng/mL U Marijuana (THC) Screen Positive H (Cutoff = 50) ng/mL - Radiology Data Radiology results reviewed: Yes I reviewed the patient's radiology results.
[2017-09-29] MEDS ORDERED: Metoclopramide 10 MG/2 ML VIAL IVP ONE (12:02)
[2017-09-29] MEDS ORDERED: Isovue-370 500 ML INFUS..BTL IV ONE (12:03)
[2017-09-29 12:26] LABS: Thyroid Stimulating Hormone 1.719 mcIU/mL (0.340-5.600)
[2017-09-29 13:16] LABS: Bilirubin,Urine Negative (Negative); Blood,Urine Negative (Negative); Clarity,Urine Clear (Clear); Color,Urine Yellow (Yellow); Glucose,Urine (UA) Normal (Normal); Ketones,Urine Negative (Negative); Leukocyte Esterase,Urine Negative (Negative); Nitrite,Urine Negative (Negative); PH,Urine 7.5 pH Units (5.0-8.0); Protein,Urine Negative (Neg-Trace); Specific Gravity,Urine > 1.030 (1.010-1.025); Urobilinogen,Urine Normal (Normal)
[2017-09-29] MEDS ORDERED: *HR* Promethazine 25 MG/ML VIAL IVP ONE (14:32)
[2017-09-29 15:25] LABS: Amphetamine Screen,Urine Negative ng/mL (Cutoff=1000); Barbiturate Screen,Urine Negative ng/mL (Cutoff=200); Benzodiazepines Screen,Urine Negative ng/mL (Cutoff=200); Cannabinoid Screen,Urine Positive ng/mL (Cutoff = 50); Cocaine Screen,Urine Negative ng/mL (Cutoff= 300); Opiate Screen,Urine Negative ng/mL (Cutoff=300); Phencyclidine Screen,Urine Negative ng/mL (Cutoff=25)
--- NOTE | 2017-09-29 16:42 | Emergency Department Note ---
Disposition Clinical Impression: Nausea & vomiting Qualifiers: Vomiting type: unspecified Vomiting Intractability: intractable Qualified Code( s): R11.2 - Nausea with vomiting, unspecified Abdominal pain Qualifiers: Abdominal location: epigastric Qualified Code(s): R10.13 - Epigastric pain Disposition: Admitted As Inpatient Condition: Fair Reasons to Return/Additional Instructions: referred to GI doctor, return to ER for worsening abdominal pain, nausea/ vomiting, chill and fever, or other concerns. Prescriptions: Ondansetron ODT [Zofran ODT] 4 mg SL Q6HR #16 tab.rapdis Promethazine [Phenergan] 25 mg PO Q8HR #30 tablet Dicyclomine [Bentyl] 10 mg PO QID #30 capsule Omeprazole [PriLOSEC] 40 mg PO DAILY #30 cap Referrals: [facility] [Provider Group] Luke Man DO [Primary Care Provider] - Forms: ED Satisfaction Letter, Work/School Release General Adult HPI - General Chief complaint: ED Abdominal Pain Stated complaint: ABD Pain N/V Time Seen by Provider: 09/29/17 08:58 Source: patient, family Limitations: no limitations - History of Present Illness Pain Scale: 10 - Related Data Previous Rx's Medication Instructions Recorded Omeprazole [PriLOSEC] 20 mg PO DAILY #30 cap 09/12/17 Promethazine [Phenergan] 12.5 mg PO Q6HR PRN 7 Days #28 09/12/17 tablet Sucralfate [Carafate] 1 gm PO BID #60 tablet 09/12/17 Ondansetron ODT [Zofran ODT] 4 mg SL Q6HR PRN #20 tab.rapdis 09/15/17 Omeprazole [PriLOSEC] 20 mg PO BIDAC #60 cap 09/24/17 Pantoprazole Sodium [Protonix] 40 mg PO BID #60 tablet.dr 09/24/17 Promethazine [Phenergan] 12.5 mg PO Q6HR PRN #20 tablet 09/24/17 Ranitidine HCl [Acid Geriatric Physical Therapist] 150 mg PO BID #60 tablet 09/24/17 Dicyclomine [Bentyl] 10 mg PO QID #30 capsule 09/29/17 Omeprazole [PriLOSEC] 40 mg PO DAILY #30 cap 09/29/17 Ondansetron ODT [Zofran ODT] 4 mg SL Q6HR #16 tab.rapdis 09/29/17 Promethazine [Phenergan] 25 mg PO Q8HR #30 tablet 09/29/17 Allergies Allergy/AdvReac Type Severity Reaction Status Date / Time No Known Allergies Allergy Verified 09/29/17 08:35 Constitutional: Denies: fever, chills, weakness, weight change Eyes: Denies: eye pain, eye discharge, vision change ENT ED: Denies: ear pain, throat pain, dental pain, hearing loss, epistaxis, congestion, dysphagia Cardiovascular: Denies: chest pain, palpitations, dyspnea on exertion, edema, syncope Respiratory: Denies: cough, dyspnea, wheezes, hemoptysis, stridor Gastrointestinal: Reports: abdominal pain, nausea, vomiting. Denies: diarrhea, constipation, hematemesis, melena, hematochezia Genitourinary: Denies: urgency, dysuria, frequency, hematuria Musculoskeletal: Denies: back pain, neck pain, arthralgia, myalgia Integumentary: Denies: rash, abrasion, lesions Neurological: Denies: headache, weakness, numbness, paresthesias, confusion, abnormal gait, vertigo Psychiatric: Denies: anxiety, depression, suicidal thoughts, homicidal thoughts , auditory hallucinations, visual hallucinations Endocrine: Denies: fatigue Hematological/Lymphatic: Denies: easy bleeding, easy bruising Allergic/Immunologic: Denies: facial swelling, urticaria Past Medical History - Past Medical History Medical history: Reports: GERD, other Surgical history: Reports: no surgical history, other Psychiatric history: Reports: anxiety - Social History Smoking Status: Former smoker Smokeless Tobacco Status: No Alcohol use: Reports: none Drug use: Reports: none Physical Exam - General Limitations: no limitations General appearance: alert, in no apparent distress Course Vital Signs Temperature 98.5 F 09/29/17 08:33 Pulse Rate 92 09/29/17 08:33 Respiratory Rate 18 09/29/17 08:33 Blood Pressure 144/88 09/29/17 08:33 O2 Sat by Pulse Oximetry 98 09/29/17 08:33 Temperature 98.5 F 09/29/17 08:33 Pulse Rate 75 09/29/17 11:53 Respiratory Rate 20 09/29/17 11:53 Blood Pressure 158/94 09/29/17 11:53 O2 Sat by Pulse Oximetry 97 09/29/17 11:53 Oxygen Delivery Oxygen Delivery Room Air Medical Decision Making - Lab Data Result diagrams: 09/29/17 09:21 09/29/17 09:21 Lab Results 09/29/17 09/29/17 09/29/17 Range/Units 09:21 09:21 12:55 WBC 12.1 H (4.3-11.1) K/mcL RBC 4.70 (4.19-5.50) M/mcL Hgb 14.4 D (12.9-16.9) g/dL Hct 41.9 (37.5-50.1) % MCV 89.1 (83.0-100.0) fL MCH 30.6 (28.0-33.3) pg MCHC 34.4 (31.6-35.5) g/dL RDW 12.4 (11.5-14.5) % Plt Count 303 (140-400) K/mcL MPV 9.7 (9.4-12.4) fL Immature Gran % 0.3 (0-4) % Seg Neutrophils % 80.3 % Lymphocytes % 12.9 % Monocytes % 5.8 % Eosinophils % 0.5 % Basophils % 0.2 % Neutrophils # 9.7 H (1.6-8.9) K/mcL Lymphocytes # 1.6 (0.6-4.6) K/mcL Monocytes # 0.7 (0.0-1.3) K/mcL Eosinophils # 0.1 (0.0-0.6) K/mcL Basophils # 0.0 (0.0-0.2) K/mcL Sodium 137 (136-145) mEq/L Potassium 3.4 L (3.5-5.1) mEq/L Chloride 104 (98-107) mEq/L Carbon Dioxide 24 (23-29) mEq/L BUN 14 (6-20) mg/dL Creatinine 1.04 (0.70-1.30) mg/dL Est GFR ( Amer) > 60 (> 60) Est GFR (Non-Af Amer) > 60 (> 60) BUN/Creatinine Ratio 13 (6-26) Glucose 107 H (70-105) mg/dL Calculated Osmolality 285 (280-300) Calcium 9.3 (8.6-10.3) mg/dL Total Bilirubin 0.6 (0.3-1.0) mg/dL Direct Bilirubin 0.2 (0.0-0.2) mg/dL Indirect Bilirubin 0.4 (0.0-1.2) mg/dL AST 19 (13-39) Units/L ALT 35 (7-52) Units/L Alkaline Phosphatase 59 (34-104) Units/L Serum Total Protein 7.1 (6.4-8.9) g/dL Albumin 4.2 (3.5-5.7) g/dL Globulin 2.9 (2.4-3.5) g/dL Albumin/Globulin Ratio 1.4 (1.1-2.2) Lipase 18 (11-82) Units/L TSH 1.719 (0.340-5.600) mcIU/mL Urine Color Yellow (Yellow) Urine Clarity Clear (Clear) Urine pH 7.5 (5.0-8.0) pH Units Ur Specific [place] > 1.030 H (1.010-1.025) Urine Protein Negative (Neg-Trace) mg/dL Urine Glucose (UA) Normal (Normal) mg/dL Urine Ketones Negative (Negative) mg/dL Urine Blood Negative (Negative) Urine Nitrite Negative (Negative) Urine Bilirubin Negative (Negative) Urine Urobilinogen Normal (Normal) mg/dL Ur Leukocyte Esterase Negative (Negative) Ur Culture Indicated? NO (NO) Urine Opiates Screen (Qbdgip=289) ng/mL Ur Barbiturates Screen (Jmoxxs=428) ng/mL Ur Phencyclidine Scrn (Cutoff=25) ng/mL Ur Amphetamines Screen (Inytxx=5351) ng/mL U Benzodiazepines Scrn (Wuiwdn=159) ng/mL Urine Cocaine Screen (Cutoff= 300) ng/mL U Marijuana (THC) Screen (Cutoff = 50) ng/mL 09/29/17 Range/Units 13:04 WBC (4.3-11.1) K/mcL RBC (4.19-5.50) M/mcL Hgb (12.9-16.9) g/dL Hct (37.5-50.1) % MCV (83.0-100.0) fL MCH (28.0-33.3) pg MCHC (31.6-35.5) g/dL RDW (11.5-14.5) % Plt Count (140-400) K/mcL MPV (9.4-12.4) fL Immature Gran % (0-4) % Seg Neutrophils % % Lymphocytes % % Monocytes % % Eosinophils % % Basophils % % Neutrophils # (1.6-8.9) K/mcL Lymphocytes # (0.6-4.6) K/mcL Monocytes # (0.0-1.3) K/mcL Eosinophils # (0.0-0.6) K/mcL Basophils # (0.0-0.2) K/mcL Sodium (136-145) mEq/L Potassium (3.5-5.1) mEq/L Chloride (98-107) mEq/L Carbon Dioxide (23-29) mEq/L BUN (6-20) mg/dL Creatinine (0.70-1.30) mg/dL Est GFR ( Amer) (> 60) Est GFR (Non-Af Amer) (> 60) BUN/Creatinine Ratio (6-26) Glucose (70-105) mg/dL Calculated Osmolality (280-300) Calcium (8.6-10.3) mg/dL Total Bilirubin (0.3-1.0) mg/dL Direct Bilirubin (0.0-0.2) mg/dL Indirect Bilirubin (0.0-1.2) mg/dL AST (13-39) Units/L ALT (7-52) Units/L Alkaline Phosphatase (34-104) Units/L Serum Total Protein (6.4-8.9) g/dL Albumin (3.5-5.7) g/dL Globulin (2.4-3.5) g/dL Albumin/Globulin Ratio (1.1-2.2) Lipase (11-82) Units/L TSH (0.340-5.600) mcIU/mL Urine Color (Yellow) Urine Clarity (Clear) Urine pH (5.0-8.0) pH Units Ur Specific [place] (1.010-1.025) Urine Protein (Neg-Trace) mg/dL Urine Glucose (UA) (Normal) mg/dL Urine Ketones (Negative) mg/dL Urine Blood (Negative) Urine Nitrite (Negative) Urine Bilirubin (Negative) Urine Urobilinogen (Normal) mg/dL Ur Leukocyte Esterase (Negative) Ur Culture Indicated? (NO) Urine Opiates Screen Negative (Iflzsc=372) ng/mL Ur Barbiturates Screen Negative (Ogutjq=949) ng/mL Ur Phencyclidine Scrn Negative (Cutoff=25) ng/mL Ur Amphetamines Screen Negative (Xfbkgd=0848) ng/mL U Benzodiazepines Scrn Negative (Epeklz=319) ng/mL Urine Cocaine Screen Negative (Cutoff= 300) ng/mL U Marijuana (THC) Screen Positive H (Cutoff = 50) ng/mL Attestation Statement - Attestation Attestation: For this encounter, I have reviewed the HUMAN RESOURCES BENEFITS MANAGER or PA documentation, treatment plan, and medical decision making; and I have had face to face time with this patient. The patient has had no recurrent nausea vomiting not able to keep anything down. Very concerned about why he has these recurrent problems. The physical exam he has tenderness in the epigastrium no guarding or rebound. CT scan is negative for acute findings. Patient remained nauseated Peleg is going to vomit. Patient will be admitted.
[2017-09-29] MEDS ORDERED: Naloxone 0.4 MG/ML INJ IVP PRN (17:39)
[2017-09-29] MEDS ORDERED: Potassium Chloride 20 MEQ, Lidocaine 1% 2 ML in D5% in Water 250 ML IVPB ONE (17:42)
[2017-09-29] MEDS: OXYCODONE Oral CONC 10 MG/0.5 ML ORAL.SYG SL PRN (18:37)
[2017-09-29 18:39] LABS: Albumin 4.4 g/dL (3.5-5.7); Albumin/Globulin Ratio 1.6 (1.1-2.2); Bilirubin,Direct 0.1 mg/dL (0.0-0.2); Bilirubin,Indirect 0.6 mg/dL (0.0-1.2); Bilirubin,Total 0.7 mg/dL (0.3-1.0); Globulin 2.8 g/dL (2.4-3.5); Total Protein 7.2 g/dL (6.4-8.9)
--- NOTE | 2017-09-29 19:02 | Internal Med History&Physical ---
Date of Encounter: 09/29/17 Time of Encounter: 17:30 Internal Medicine - H&P: HPI Chief complaint: Abdominal pain/N/V Admitted From: Emergency Dept Plans for Post Hospital Care: Home History of present illness: Mr. Soriano is a 32 year old male w/PMH of GERD presents from the ED w/CC of abdominal pain, nausea, and vomiting with intermittent fever and chills for the past 6-7 months. Pt. states he was hospitalized several weeks ago at [facility] for same sx. Pt. reports hematemesis over the past week w/bloody clots in emesis. Also reports black stool. Pt. states that he was referred to Dr. Hughes and is supposed to have Endoscopy on Wednesday, 10/01. Reports that he travels for his job and these sx have caused him to repeatedly miss work. Denies previous hx of colonoscopy. Pt. denies recent illness, CP, SOB, headache, changes in vision, diarrhea, constipation, dizziness, lightheadedness, pre-syncope, or syncope. Past Med Surg Social Fam HX - Past Medical History Source: patient, old records reviewed, obtained from family Medical history: GERD, other Psychiatric history: anxiety - Past Surgical History Surgical History: cholecystectomy, other - Social History Smoking Status: Light tobacco smoker Smokeless Tobacco Status: No Alcohol use: none Drug use: marijuana Current living situation: Home, With Family Activity Level: Independent ambulation, Very active Recent Out of Country Travel Within the Last 8 Weeks: No Exposure or Possible Exposure to Illness During Travel: No - Family History Mother Family Member Ethnicity: Non- Living Status: Still Living Hx Family Medical Disorders: No Father Family Member Ethnicity: Non- Living Status: Still Living Hx Family Cardiac Disorders: Yes (HD, HTN) Brother Family Member Ethnicity: Non- Living Status: Still Living Hx Family Medical Disorders: No Sister Family Member Ethnicity: Non- Living Status: Still Living Hx Family Medical Disorders: No Grandmother Family Member Ethnicity: Non- Living Status: Still Living Hx Family Cardiac Disorders: Yes (HD, HTN, HLD) Hx Family Endocrine Disorder: Yes (DM) Grandfather Family Member Ethnicity: Non- Living Status: Age at : 63 Cause of : CVA Hx Family Cardiac Disorders: Yes (CVA) Hx Family Neurologic Disorders: Yes (CVA) Internal Medicine - H&P: Meds Sucralfate [Carafate] 1 gm PO BID #60 tablet 09/12/17 [Rx] Allopurinol [Zyloprim 100 MG] 100 mg PO DAILY 09/29/17 [History] Dicyclomine [Bentyl] 10 mg PO QID #30 capsule 09/29/17 [Rx] Omeprazole [PriLOSEC] 40 mg PO DAILY #30 cap 09/29/17 [Rx] Ondansetron ODT [Zofran ODT] 4 mg SL Q6HR #16 tab.rapdis 09/29/17 [Rx] Promethazine [Phenergan] 25 mg PO Q8HR #30 tablet 09/29/17 [Rx] 3 Allergy/AdvReac Type Severity Reaction Status Date / Time No Known Allergies Allergy Verified 09/29/17 16:58 All Systems PM: A 10-system review of systems was performed and is negative for pertinent findings except as documented above in the HPI. - Constitutional Constitutional: as per HPI, anorexia, chills, fever(s), no night sweats - EENT Eyes: no change in vision, no discharge, no pain, no photophobia Ears: no ear discharge, no ear pain, no tinnitus Nose, mouth and throat: no dysphagia, no nasal discharge, no neck pain, no sore throat - Breasts Breasts: as per HPI - Cardiovascular Cardiovascular ROS IM: no chest pain, no diaphoresis, no dyspnea, no lightheadedness, no palpitations, no syncope - Respiratory Respiratory: no cough, no dyspnea, no wheezing, no excessive phlegm production - Gastrointestinal Gastrointestinal: as per HPI, abdominal pain, hematemesis, melena, nausea, vomiting, no diarrhea, no hematochezia - Genitourinary Genitourinary ROS male: as per HPI - Musculoskeletal Musculoskeletal ROS IM: no numbness, no tingling - Integumentary Integumentary IM: no rash, no unusual bruising - Neurological Neurological ROS: no confusion, no convulsions, no focal weakness, no numbness, no tingling, no tremor(s) - Psychiatric Psychiatric: as per HPI - Endocrine Endocrine IM: as per HPI - Hematologic/Lymphatic Hematologic/Lymphatic: no easy bruising - Allergic/Immunologic Allergic/Immunologic: as per HPI - Constitutional Vitals: Temp Pulse Resp BP Pulse Ox 98.1 F 94 16 154/98 98 09/29/17 18:41 09/29/17 18:41 09/29/17 18:41 09/29/17 18:41 09/29/17 18:41 General appearance: Present: cooperative, A&O X 3, morbidly obese, severe distress (Abdominal pain), answers questions appropriately - Head Head exam: Present: atraumatic, normocephalic - Eye Eye exam: Present: PERRL, conjuntiva pink, sclera anicteric Pupils: Present: PERRL - ENT ENT exam: Present: normal exam - Neck Neck exam general surgery: Present: normal inspection, supple, trachea midline. Absent: lymphadenopathy - Respiratory Respiratory exam: Present: CTAB. Absent: accessory muscle use, rales, rhonchi, wheezes - Cardiovascular Cardiovascular exam: Present: RRR, +S1, +S2. Absent: diastolic murmur, gallop, rubs, systolic murmur - GI/Abdominal GI/Abdominal exam: Present: normal bowel sounds, soft, no peritoneal signs. Absent: distended, tenderness - Rectal Rectal exam: Present: deferred - Additional comments: exam deferred. - Extremities Exam Extremities exam: Present: warm, radial pulses palpable and symmetrical. Absent : calf tenderness, cyanotic, pedal edema - Back Exam Back exam: Present: normal inspection - Neurological Exam Neurological exam: Present: CN II-XII intact, oriented X3, no focal deficits. Absent: pronater drift, facial droop, speech deficit - Psychiatric Psychiatric exam: Present: anxious - Skin Skin exam: Present: dry, intact Internal Med - H&P Results - Labs CBC & Chem 7: 09/29/17 09:21 09/29/17 09:21 Labs: Liver Function 09/29/17 Range/Units 18:02 Total Bilirubin 0.7 (0.3-1.0) mg/dL Direct Bilirubin 0.1 (0.0-0.2) mg/dL AST 20 (13-39) Units/L ALT 36 (7-52) Units/L Alkaline Phosphatase 69 (34-104) Units/L Albumin 4.4 (3.5-5.7) g/dL - Diagnostic Studies CT scan - abdomen Additional comments: Impressions Abdomen/Pelvis CT 09/29/17 12:03 IMPRESSION: 1. No acute abdominal or pelvic abnormality. Normal appendix. 2. Status post cholecystectomy. D/ / 09/29/2017 13:06:26 Jennifer Souza MD / michelle Interpreting Provider: Jennifer Souza MD - Assessment and plan (1) Abdominal pain Current Visit: Yes Status: Acute Assessment and plan: Acute abdominal pain that pt. reports has been ongoing for 6-7 months w/nausea, vomiting, fever, and chills. Also reports hematemesis and melanotic stools. Hgb 14.4 and Hct 41.9 on admission with numbers WNL previously except for 05/22/17 when Hgb was 12.8. Pt. reports 33 pound weight loss over a short period of time as well. Pt. was referred to Dr. Hughes for scheduled Endoscopy on 10/01/17. Denies hx of colonoscopy. Reports only occasional alcohol use. NPO for now. IVP Zofran 4 mg Q4HR PRN to be alternated w/IVP Phenergan 12.5 mg Q4HR PRN for N/V control. IVP Protonix 40 mg BID. Monitor I&O and daily weight. Hepatic panel ordered. GI consult ordered and needs f/u by a.m. team. Fecal hemoccult ordered. Previous medical records from [facility] for similar sx ordered. Pt. discussed w/Dr. Peguero who agrees w/plan of care. Pt. is moderate risk for further morbidity d/t current and recurrent sx, continued N/V, severe weight loss, severe sharp/stabbing abdominal pain, and hx of GERD. Observation. Qualifiers: Abdominal location: epigastric Qualified Code(s): R10.13 - Epigastric pain (2) Nausea and vomiting Current Visit: Yes Status: Acute Assessment and plan: Acute nausea and vomiting r/t current abdominal pain of unknown etiology. IVP Zofran 4 mg Q4HR PRN to be alternated w/IVP Phenergan 12.5 mg Q4HR PRN for N/V control. Monitor I&O and daily weight. Qualifiers: Vomiting type: unspecified Vomiting Intractability: intractable Qualified Code(s): R11.2 - Nausea with vomiting, unspecified (3) Hypokalemia Current Visit: Yes Status: Acute Assessment and plan: Acute hypokalemia w/potassium of 3.4 on admission. IVPB 20 mEq w/lidocaine ordered. Will monitor potassium level at 04:00. (4) Leukocytosis Current Visit: Yes Status: Acute Assessment and plan: Acute leukocytosis w/WBC of 12.1 on admission. Patient is currently asymptomatic for infection and afebrile. Blood cultures x2. Ordered lactic acid 1.0. Pt. is currently not sepsis criteria but will be monitored closely for changes. Consider adding abx coverage based on culture results if warranted. f Qualifiers: Leukocytosis type: unspecified Qualified Code(s): D72.829 - Elevated white blood cell count, unspecified (5) Positive urine drug screen Current Visit: Yes Status: Acute Assessment and plan: Acute positive drug screen for marijuana. Pt. reports hx of marijuana use. (6) GERD (gastroesophageal reflux disease) Current Visit: Yes Status: Chronic Assessment and plan: Hx of chronic GERD. IVP Zofran 4 mg Q4HR PRN to be alternated w/IVP Phenergan 12.5 mg Q4HR PRN for N/V control. Monitor I&O and daily weight. Qualifiers: Esophagitis presence: esophagitis presence not specified Qualified Code(s) : K21.9 - Gastro-esophageal reflux disease without esophagitis (7) DVT prophylaxis Current Visit: Yes Status: Acute Assessment and plan: Bilateral SCDs on LEs for DVT prophylaxis d/t report of hematemesis and melanotic stool. Monitor pt. and Hgb/Hct for changes/signs of bleeding. - Time Spent With Patient Total time spent is greater than 50% in coordination of care (as documented) at patient's floor/unit and/or counseling patient: Greater than 35 minutes
[2017-09-29] MEDS: 0.9 % Sodium Chloride 1,000 ML IVC SCH (20:55)
[2017-09-29] MEDS: Ondansetron 4 MG/2 ML VIAL IVP SCH ×2 (20:55→23:37)
[2017-09-30] MEDS: *HR* Promethazine 25 MG/ML VIAL IVP PRN ×4 (00:47→23:49)
[2017-09-30] MEDS: OXYCODONE Oral CONC 10 MG/0.5 ML ORAL.SYG SL PRN ×4 (00:47→19:31)
[2017-09-30] MEDS: Pantoprazole 40 MG VIAL IVP SCH ×2 (05:04→19:31)
[2017-09-30] MEDS: Ondansetron 4 MG/2 ML VIAL IVP SCH ×5 (05:04→19:55)
[2017-09-30] MEDS: 0.9 % Sodium Chloride 1,000 ML IVC SCH ×2 (06:41→19:55)
[2017-09-30 08:06] LABS: Basophils % 0.5 %; Eosinophils # 0.1 K/mcL (0.0-0.6); Eosinophils % 0.9 %; Hemoglobin 14.7 g/dL (12.9-16.9); Immature Granulocytes % 0.5 % (0-4); Lymphocytes # 2.1 K/mcL (0.6-4.6); Mean Corpuscular Hemoglobin 31.9 pg (28.0-33.3); Mean Corpuscular Volume 91.1 fL (83.0-100.0); Mean Platelet Volume 9.8 fL (9.4-12.4); Monocytes # 0.6 K/mcL (0.0-1.3); Monocytes % 8.3 %; Neutrophils # 4.6 K/mcL (1.6-8.9); Platelet Count 278 K/mcL (140-400); Red Blood Count 4.61 M/mcL (4.19-5.50); Red Cell Distribution Width 12.3 % (11.5-14.5); Segmented Neutrophils % 61.8 %
[2017-09-30 10:07] LABS: Alanine Aminotransferase 39 Units/L (7-52); Albumin 4.2 g/dL (3.5-5.7); Albumin/Globulin Ratio 1.6 (1.1-2.2); Alkaline Phosphatase 66 Units/L (34-104); Aspartate Amino Transferase 21 Units/L (13-39); BUN/Creatinine Ratio 5 (6-26); Bilirubin,Total 0.7 mg/dL (0.3-1.0); Blood Urea Nitrogen 6 mg/dL (6-20); Calcium 9.2 mg/dL (8.6-10.3); Carbon Dioxide 27 mEq/L (23-29); Chloride 103 mEq/L (98-107); Chol/HDL Ratio 3.6 (0-4.9); Cholesterol 135 mg/dL (< 200); Globulin 2.7 g/dL (2.4-3.5); Glucose 114 mg/dL (70-105); HDL Cholesterol 38 mg/dL (40-59); LDL Cholesterol,Calculated 78 mg/dL (0-99); Osmolality,Calculated 282 (280-300); Potassium 3.6 mEq/L (3.5-5.1); Sodium 137 mEq/L (136-145); Total Protein 6.9 g/dL (6.4-8.9); Triglycerides 94 mg/dL (< 150); eGFR For African Americans > 60 (> 60); eGFR For Non-African Americans > 60 (> 60)
[2017-09-30 10:10] LABS: Estimated Average Glucose 114 mg/dl; Hemoglobin A1C 5.6 %
--- NOTE | 2017-09-30 12:44 | Gastroenterology Consult Note ---
Date of Encounter: 09/30/17 Time of Encounter: 10:30 - Assessment and plan (1) Hematemesis with nausea Current Visit: Yes Status: Acute Assessment and plan: Pt reports abdominal pain, nausea and vomiting with dark blood and clots. He needs EGD to rule out MW tear, avm, esophagitis, gastritis or PUD. Will plan for tomorrow. Patient educated regarding lifestyle modifications including: (1) avoidance of foods that may precipitate reflux (eg, coffee, alcohol, chocolate, fatty foods) . (2) avoidance of acidic foods that may precipitate heartburn (eg, citrus, carbonated drinks, spicy foods). (3) adoption of behaviors that may reduce esophageal acid exposure (see weight loss, smoking cessation, raising the head of the bed, and avoiding recumbency for 2-3 hours after meals). (2) Epigastric pain Current Visit: No Status: Acute - Time Spent With Patient Total time spent is greater than 50% in coordination of care (as documented) at patient's floor/unit and/or counseling patient: GI History of Present Illness - Data of Consult Patient: new to practice Consult date: 09/30/17 Requesting Physician: Brooklynn Peguero - Consult Narrative Reason for consult: hematemesis History of present illness: Mr. Soriano is a 32 year old male w/PMH of GERD. He presents from the ED w/CC of abdominal pain, nausea, and vomiting with intermittent fever and chills for the past 6-7 months. Pt. states he was hospitalized several weeks ago at [facility] for same sx, and has a normal EGD while there. Pt. reports hematemesis over the past week w/bloody clots in emesis. Also reports black stool a couple weeks ago. Pt. states that he was referred to Dr. Hughes and is supposed to have Endoscopy on Wednesday, 10/01. Reports that he travels for his job and these sx have caused him to repeatedly miss work. Denies previous hx of colonoscopy. Pt. denies recent illness, CP, SOB, headache, changes in vision, diarrhea, constipation, dizziness, lightheadedness, pre-syncope. He denies NSAIDS or anticoagulants. He reports occasional alcohol, denies elicit drug use. He states he has been taking protonix, ranitidine, and carafate at home with nor relief. He also admits to 30 pound weight loss in the past 2 months. Past Med Surg Social Fam HX - Past Medical History Medical history: GERD, other Psychiatric history: anxiety - Past Surgical History Surgical History: cholecystectomy, other - Social History Smoking Status: Light tobacco smoker Smokeless Tobacco Status: No Alcohol use: none Drug use: marijuana - Family History Mother Race: Family Member Ethnicity: Non- Living Status: Still Living Hx Family GI Disorders: Yes (GB) Hx Family Medical Disorders: No Father Race: Family Member Ethnicity: Non- Living Status: Still Living Hx Family Cardiac Disorders: Yes (HD, HTN) Hx Family GI Disorders: Yes (GB) Brother Race: Family Member Ethnicity: Non- Living Status: Still Living Hx Family Medical Disorders: No Sister Race: Family Member Ethnicity: Non- Living Status: Still Living Hx Family Medical Disorders: No Grandmother Family Member Ethnicity: Non- Living Status: Still Living Hx Family Cardiac Disorders: Yes (HD, HTN, HLD) Hx Family Endocrine Disorder: Yes (DM) Grandfather Family Member Ethnicity: Non- Living Status: Age at : 63 Cause of : CVA Hx Family Cardiac Disorders: Yes (CVA) Hx Family Neurologic Disorders: Yes (CVA) Review of Systems: GI: as per [facility] [place] [facility]: reports fever up to 102 at home EYES: denies yellow discoloration ENT: denies pain with swallowing or difficulty swallowing CARDIO: denies chest pain, palpitations RESP: No Shortness of breath with exertion : denies change in color of urine NEURO: denies any weakness HEME: Denies any bruising MS: denies joint pain, joint swelling or back pain. DERM: denies rash or itching PSYCH: history of anxiety or depression - Constitutional Vitals: Temp Pulse Resp BP Pulse Ox 98.4 F 93 14 130/70 95 09/30/17 11:27 09/30/17 11:27 09/30/17 11:27 09/30/17 11:27 09/30/17 11:27 Exam: CONSTITUTIONAL:~alert, no acute distress.~HEAD:~normocephalic.~EYES:~no jaundice.~NECK:~no obvious swelling.~HEART:~regular rate and rhythm, no murmurs. ~LUNGS:~bilateral good air entry.~ABDOMEN:~non distended, soft, tender epigastric area, no masses pulpable, no organomegaly.~RECTAL EXAM:~Deferred.~ EXTREMITIES:~no clubbing, cyanosis or edema.~SKIN:~no stigmata of chronic liver disease, tattoos noted.~NEUROLOGIC:~no obvious focal defect.~~~~ Results - Labs CBC & Chem 7: 09/30/17 07:40 09/30/17 07:40 Labs: Last Result Calcium 9.2 mg/dL (8.6-10.3) 09/30/17 07:40 Triglycerides 94 mg/dL (< 150) 09/30/17 07:40 Urine Opiates Screen Negative ng/mL (Ahwtrs=959) 09/29/17 13:04 Entire Visit Hgb 14.7 g/dL (12.9-16.9) 09/30/17 07:40 Hct 42.0 % (37.5-50.1) 09/30/17 07:40 Total Bilirubin 0.7 mg/dL (0.3-1.0) 09/30/17 07:40 AST 21 Units/L (13-39) 09/30/17 07:40 ALT 39 Units/L (7-52) 09/30/17 07:40 Lipase 18 Units/L (11-82) 09/29/17 09:21 Consult Discharge Plan - Plan Referrals: Luke Man DO [Primary Care Provider] -
--- NOTE | 2017-09-30 21:51 | Internal Med Progress Note ---
Date of Encounter: 09/30/17 Time of Encounter: 12:00 - Assessment and plan (1) Abdominal pain Current Visit: Yes Status: Acute Assessment and plan: No vomiting at this time Has been expereincing nausea vomiting with dark blood clots - has appointment with Dr Hughes for EGD Fri- GI consulted will undergo EGD in AM NPO after midnight cont antiemetics Qualifiers: Abdominal location: epigastric Qualified Code(s): R10.13 - Epigastric pain (2) Nausea and vomiting Current Visit: Yes Status: Acute Assessment and plan: N/V abd pain GI consulted EGD in AM Patient is chronic marajuana smoker since 20 yrs old daily use - could be cyclic vomiting syndrome - EGD to rule out MW tear antiemetics Qualifiers: Vomiting type: unspecified Vomiting Intractability: intractable Qualified Code(s): R11.2 - Nausea with vomiting, unspecified (3) DVT prophylaxis Current Visit: Yes Status: Acute Assessment and plan: Bilateral SCDs on LEs for DVT prophylaxis d/t report of hematemesis and melanotic stool. Monitor pt. and Hgb/Hct for changes/signs of bleeding. (4) GERD (gastroesophageal reflux disease) Current Visit: Yes Status: Chronic Assessment and plan: Chronic Gerd cont antiemtics Protonix Qualifiers: Esophagitis presence: esophagitis presence not specified Qualified Code(s) : K21.9 - Gastro-esophageal reflux disease without esophagitis (5) Leukocytosis Current Visit: Yes Status: Acute Assessment and plan: Most likely reactive- back to baseline Qualifiers: Leukocytosis type: unspecified Qualified Code(s): D72.829 - Elevated white blood cell count, unspecified (6) Positive urine drug screen Current Visit: Yes Status: Acute Assessment and plan: positive drug screen for marijuana. Patient admits to daily use since he was 20 yrs old (7) Hypokalemia Current Visit: Yes Status: Acute Assessment and plan: From vomiting - replace and monitor - today stable - Time Spent With Patient Total time spent is greater than 50% in coordination of care (as documented) at patient's floor/unit and/or counseling patient: - Subjective Interval history: I examined patient at bedside, no nausea or vomiting at this time -hx hematemesis over past week - Constitutional Vitals: Temp Pulse Resp BP Pulse Ox 98.8 F 72 15 104/52 95 09/30/17 18:55 09/30/17 18:55 09/30/17 18:55 09/30/17 18:55 09/30/17 18:55 General appearance: Present: cooperative, A&O X 3, morbidly obese, severe distress (Abdominal pain), answers questions appropriately - Head Head exam: Present: atraumatic, normocephalic - Eye Eye exam: Present: PERRL, conjuntiva pink, sclera anicteric Pupils: Present: PERRL - Neck Neck exam general surgery: Present: supple, trachea midline. Absent: lymphadenopathy - Respiratory Respiratory exam: Present: CTAB. Absent: accessory muscle use, rales, rhonchi, wheezes - Cardiovascular Cardiovascular exam: Present: RRR, +S1, +S2. Absent: diastolic murmur, gallop, rubs, systolic murmur - GI/Abdominal GI/Abdominal exam: Present: normal bowel sounds, soft, no peritoneal signs. Absent: distended, tenderness - Extremities Exam Extremities exam: Present: warm, radial pulses palpable and symmetrical. Absent : calf tenderness, cyanotic, pedal edema - Neurological Exam Neurological exam: Present: CN II-XII intact, oriented X3, no focal deficits. Absent: pronater drift, facial droop, speech deficit - Skin Skin exam: Present: dry, intact Internal Medicine: Result - Labs CBC & Chem 7: 09/30/17 07:40 09/30/17 07:40 Labs: Short CBC 09/30/17 Range/Units 07:40 WBC 7.5 (4.3-11.1) K/mcL Hgb 14.7 (12.9-16.9) g/dL Hct 42.0 (37.5-50.1) % Plt Count 278 (140-400) K/mcL Neutrophils # 4.6 (1.6-8.9) K/mcL BMP 09/30/17 07:40 Sodium 137 Potassium 3.6 Chloride 103 Carbon Dioxide 27 BUN 6 Creatinine 1.10 Glucose 114 H Calcium 9.2 Liver Function 09/30/17 Range/Units 07:40 Total Bilirubin 0.7 (0.3-1.0) mg/dL AST 21 (13-39) Units/L ALT 39 (7-52) Units/L Alkaline Phosphatase 66 (34-104) Units/L Albumin 4.2 (3.5-5.7) g/dL Consult Discharge Plan - Plan Referrals: Luke Man DO [Primary Care Provider] -
[2017-10-01] MEDS: Ondansetron 4 MG/2 ML VIAL IVP SCH ×5 (00:02→16:18)
[2017-10-01] MEDS: 0.9 % Sodium Chloride 1,000 ML IVC SCH ×2 (00:02→03:56)
[2017-10-01] MEDS: *HR* Promethazine 25 MG/ML VIAL IVP PRN ×3 (03:46→14:11)
[2017-10-01] MEDS: OXYCODONE Oral CONC 10 MG/0.5 ML ORAL.SYG SL PRN ×2 (03:47→09:32)
[2017-10-01] MEDS: Pantoprazole 40 MG VIAL IVP SCH ×2 (06:10→16:47)
[2017-10-01 07:27] LABS: Alanine Aminotransferase 32 Units/L (7-52); Albumin 3.8 g/dL (3.5-5.7); Albumin/Globulin Ratio 1.5 (1.1-2.2); Alkaline Phosphatase 61 Units/L (34-104); Aspartate Amino Transferase 16 Units/L (13-39); BUN/Creatinine Ratio 7 (6-26); Bilirubin,Total 0.4 mg/dL (0.3-1.0); Blood Urea Nitrogen 8 mg/dL (6-20); Calcium 8.9 mg/dL (8.6-10.3); Carbon Dioxide 28 mEq/L (23-29); Chloride 104 mEq/L (98-107); Globulin 2.6 g/dL (2.4-3.5); Glucose 105 mg/dL (70-105); Osmolality,Calculated 285 (280-300); Potassium 4.1 mEq/L (3.5-5.1); Sodium 138 mEq/L (136-145); Total Protein 6.4 g/dL (6.4-8.9); eGFR For African Americans > 60 (> 60); eGFR For Non-African Americans > 60 (> 60)
[2017-10-01 07:34] LABS: Basophils # 0.1 K/mcL (0.0-0.2); Basophils % 0.5 %; Eosinophils # 0.1 K/mcL (0.0-0.6); Eosinophils % 1.2 %; Hematocrit 40.9 % (37.5-50.1); Hemoglobin 14.1 g/dL (12.9-16.9); Immature Granulocytes % 0.5 % (0-4); Lymphocytes # 2.5 K/mcL (0.6-4.6); Lymphocytes % 23.6 %; Mean Corpuscular HGB Conc 34.5 g/dL (31.6-35.5); Mean Corpuscular Hemoglobin 31.5 pg (28.0-33.3); Mean Corpuscular Volume 91.5 fL (83.0-100.0); Monocytes # 0.8 K/mcL (0.0-1.3); Monocytes % 7.3 %; Platelet Count 280 K/mcL (140-400); Red Blood Count 4.47 M/mcL (4.19-5.50); Red Cell Distribution Width 12.4 % (11.5-14.5); Segmented Neutrophils % 66.9 %
[2017-10-01] MEDS ORDERED: OXYCODONE Oral CONC 10 MG/0.5 ML ORAL.SYG SL PRN ×2 (10:30→17:46)
[2017-10-01] MEDS ORDERED: OXYCODONE Oral CONC 10 MG/0.5 ML ORAL.SYG SL ONE (10:30)
[2017-10-01] MEDS ORDERED: *HR* Midazolam HCl 5 MG/5 ML VIAL IVP ONE (12:23)
[2017-10-01] MEDS ORDERED: *HR* FentaNYL (PF) 100 MCG/2 ML VIAL ONE (12:24)
[2017-10-01] MEDS ORDERED: 0.9 % Sodium Chloride 500 ML IVC SCH (13:00)
[2017-10-01] MEDS ORDERED: *HR* FentaNYL (PF) 100 MCG/2 ML VIAL IVP ONE (13:07)
[2017-10-01] MEDS ORDERED: Tetracaine/Benzocaine/Butamben 200MG/SPRAY (100SPY/BOT) MM ONE (13:07)
[2017-10-01] MEDS ORDERED: Simethicone 40 MG/0.6 ML MLS IR ONE (13:07)
[2017-10-01] MEDS ORDERED: *HR* Midazolam HCl 2 MG/2 ML VIAL IVP ONE (13:07)
--- NOTE | 2017-10-01 13:07 | Pre-Sedation Evaluation ---
Pre-sedation evaluation - Pre-sedation checklist Date of procedure: 10/01/17 Procedure: EGD Recent Vitals: Last Vital Signs Temp 98.4 F 10/01/17 11:08 Pulse 92 10/01/17 12:45 Resp 16 10/01/17 12:45 BP 155/116 10/01/17 12:45 Pulse Ox 97 10/01/17 12:45 H&P (including ROS) documented in medical record: Yes Previous reaction to sedatives/anesthetics: No Dietary Status: NPO after Midnight Dentition: full dentition ASA Classification *see protocol: CLASS II-Mild systemic disease Plan of Care: Pt appropriate candidate for procedure/moderate/conscious sedation , Risks/benefits of procedure/sedation discussed w/ patient/family
[2017-10-01] MEDS ORDERED: *HR* Promethazine 25 MG/ML VIAL IVP PRN (17:46)
[2017-10-01 18:35] VITALS: BP 155/86
--- NOTE | 2017-10-01 18:59 | Discharge Summary ---
- NOTES TO OUTPATIENT PROVIDER Notes to Outpatient Provider: Follow-up with Dr. Duncan. PPI daily low-dose Elavil 25 mg at bedtime. EGD with medium sized hiatal hernia found Orders not resulted at time of discharge: Pending orders 09/29/17 17:58 Culture,Blood [BC] Stat Culture,Blood,Additional [BC] Stat 09/29/17 19:00 Fecal Hemoccult [Occult Blood,Stool] [BF] Routine 10/01/17 13:25 Surgical Pathology [PTH] Routine 10/02/17 04:00 Complete Blood Count [HEME] AM 0400 Comprehensive Metabolic Panel AM 0400 Date of Encounter: 10/01/17 Time of Encounter: 18:57 - Discharge Diagnosis (1) Abdominal pain Priority: Primary Status: Acute Qualifiers: Abdominal location: epigastric Qualified Code(s): R10.13 - Epigastric pain (2) Nausea and vomiting Priority: Primary Status: Acute Qualifiers: Vomiting type: unspecified Vomiting Intractability: intractable Qualified Code(s): R11.2 - Nausea with vomiting, unspecified (3) GERD (gastroesophageal reflux disease) Priority: Secondary Status: Chronic Qualifiers: Esophagitis presence: esophagitis presence not specified Qualified Code(s) : K21.9 - Gastro-esophageal reflux disease without esophagitis (4) Leukocytosis Priority: Secondary Status: Acute Qualifiers: Leukocytosis type: unspecified Qualified Code(s): D72.829 - Elevated white blood cell count, unspecified (5) Positive urine drug screen Priority: Secondary Status: Acute (6) Hypokalemia Priority: Secondary Status: Acute Hospital course: Mr. Soriano is a 32 year old male past mother history of GERD and anxiety marijuana use. Presented to the ED with complaints of a bowel pain nausea and vomiting with intermittent fevers chills for the past 6-7 months. He states he was hospitalized several weeks ago at [facility] for same symptoms and had a normal EGD there. He reports hematemesis over the past week with bloody clots. He also reports black stool couple weeks ago. He was referred to Dr. Hughes is supposed to undergo endoscopy on Sunday 10/01. No history of NSAID or eat adequately use. He is occasional drinker 3002 almost daily use of marijuana since he was 20. Tox screen was positive for marijuana. Lab work did show hypokalemia on presentation which was replaced and remained stable. Hemoglobin was within normal limits throughout admission. Patient did not have a stool during this admission and no Hemoccult was completed. Patient was seen by GI he underwent EGD today which did show a medium-sized hiatal hernia. GI recommending follow-up as an outpatient low-dose Elavil 25 mg at at bedtime and continue PPI daily. Postprocedure patient tolerated eating and drinking vital signs have been stable. No episodes of vomiting no signs and symptoms of bleeding during this admission. I did review discharge follow-ups with patient- both GI and PCP since this provider this in past and can adjust medications as needed. Advised patient to take medications as prescribed encourage patient to stop smoking marijuana patient verbalized understanding. If he is ready for discharge. Discharge discussed with: patient - Time Spent with Patient Total time spent providing and/or coordinating discharge services: - Discharge Medications Prescriptions: Ondansetron ODT [Zofran ODT] 4 mg SL Q6HR #12 tab.rapdis Amitriptyline [Elavil] 25 mg PO HS #30 tablet Home Medications: Sucralfate [Carafate] 1 gm PO BID #60 tablet 09/12/17 [Rx] Allopurinol [Zyloprim 100 MG] 100 mg PO DAILY 09/29/17 [History] Dicyclomine [Bentyl] 10 mg PO QID #30 capsule 09/29/17 [Rx] Omeprazole [PriLOSEC] 40 mg PO DAILY #30 cap 09/29/17 [Rx] Ondansetron ODT [Zofran ODT] 4 mg SL Q6HR #16 tab.rapdis 09/29/17 [Rx] Promethazine [Phenergan] 25 mg PO Q8HR #30 tablet 09/29/17 [Rx] Amitriptyline [Elavil] 25 mg PO HS #30 tablet 10/01/17 [Rx] Ondansetron ODT [Zofran ODT] 4 mg SL Q6HR #12 tab.rapdis 10/01/17 [Rx] Allergies/Adverse Reactions: 3 Allergy/AdvReac Type Severity Reaction Status Date / Time No Known Allergies Allergy Verified 09/29/17 16:58 Date of admission: 09/29/17 17:13 Primary care physician: Luke Quintana DO Consults: 09/29/17 17:43 Consult to Gastroenterology [CONS] Routine Consulting Provider: Gastroenterology Maribel Reason for Consult: Patient reports 6 month hx of abdominal pain, nausea, and vomiting w/weight loss of 33 pounds. Reports black stool this week, hemoptysis, and sharp/stabbing pain in epigastric area that is constant. Hx of GERD. No hx of colonoscopy or EGD. Reports he is scheduled to have Endoscopy w/Dr. Hughes on Wednesday. Call Completed: No 09/29/17 17:51 Consult to Linotype Mechanic [CONS] Routine Reason for SW Consult: Please assess patient for possible home needs for post -discharge planning. Discharging clinician: Radha Soriano Anticipated date of discharge: 10/01/17 - Constitutional Vitals: Temp Pulse Resp BP Pulse Ox 98.3 F 102 16 155/86 96 10/01/17 18:31 10/01/17 18:31 10/01/17 18:31 10/01/17 18:31 10/01/17 18:31 General appearance: Present: cooperative, A&O X 3, morbidly obese, severe distress (Abdominal pain), answers questions appropriately - Head Head exam: Present: atraumatic, normocephalic - Eye Eye exam: Present: PERRL, conjuntiva pink, sclera anicteric Pupils: Present: PERRL - Neck Neck exam general surgery: Present: supple, trachea midline. Absent: lymphadenopathy - Respiratory Respiratory exam: Present: CTAB. Absent: accessory muscle use, rales, rhonchi, wheezes - Cardiovascular Cardiovascular exam: Present: RRR, +S1, +S2. Absent: diastolic murmur, gallop, rubs, systolic murmur - GI/Abdominal GI/Abdominal exam: Present: normal bowel sounds, soft, no peritoneal signs. Absent: distended, tenderness - Extremities Exam Extremities exam: Present: warm, radial pulses palpable and symmetrical. Absent : calf tenderness, cyanotic, pedal edema - Neurological Exam Neurological exam: Present: CN II-XII intact, oriented X3, no focal deficits. Absent: pronater drift, facial droop, speech deficit - Skin Skin exam: Present: dry, intact - Patient Status Disposition: Home, Self-Care Condition: Fair Functional capacity at discharge: independent ambulation Overall status at discharge: patient is back to baseline - Discharge Instructions Instructions: Amitriptyline (By mouth), Ondansetron (By mouth), Hiatal Hernia ( DC) Follow Up With: Luke Man DO [Primary Care Provider] - (please call to schedule follow up appointment) Dee Duncan MD [Partnered Physician] - (Please call to schedule follow up appointment) - Diet and Activity Activity: increase activity as tolerated Diet: advance to your usual diet
== END 2017-10-01 20:10 | disposition home or self-care (01) ==
LOC: 3BNU 08:31 → EMEROO 08:31 → 3BNU 17:41
PROVIDERS: ADMIT Internal Medicine Nephrology; ATTEND Internal Medicine Nephrology
PROC: ENDOEBX (2017-10-01 07:45)